=== PATIENT | female | born 1965 | race Caucasian/White ===

== ENCOUNTER → 2018-11-30 07:45 | Outpatient (CLI) | payer OTHER, SELFPAY ==
--- NOTE | 2018-11-30 08:03 | MRI_ITS ---
STUDY: MRI LUMBAR SPINE WITHOUT CONTRAST REASON FOR EXAM: Female, 53 years old. Low back pain. TECHNIQUE: Standardized fat and water weighted pulse sequences were obtained in the sagittal and axial planes. COMPARISON: None FINDINGS: T12-L1: Normal endplates. Normal disc height, hydration and morphology. Normal bilateral facet joints. Normal central canal and bilateral lateral recesses. Normal bilateral intervertebral neural foramina. Normal lumbar lordosis. There is no substantial scoliosis. Normal conus medullaris that terminates at the L1. L1-2: Normal endplates. Normal disc height, hydration and morphology. Normal bilateral facet joints. Normal central canal and bilateral lateral recesses. Normal bilateral intervertebral neural foramina. L2-3: Mild bilateral facet hypertrophy and ligament flavum hypertrophy. Mild broad disc protrusion produces mild spinal stenosis with mild bilateral lateral recess stenosis but no neural foraminal stenosis. L3-4: Mild bilateral facet hypertrophy and ligament flavum hypertrophy. Mild broad disc protrusion produces mild spinal stenosis with mild bilateral lateral recess stenosis and mild bilateral neural foraminal stenosis. L4-5: Mild bilateral facet hypertrophy and ligament flavum hypertrophy. Moderate broad disc protrusion produces moderate spinal stenosis with moderate bilateral lateral recess stenosis with abutment of the L4 nerve roots bilaterally but no neural foraminal stenosis. L5-S1: Normal endplates. Normal disc height, hydration and morphology. Normal bilateral facet joints. Normal central canal and bilateral lateral recesses. Normal bilateral intervertebral neural foramina. Normal visualized sacral ala. Normal visualized paraspinous soft tissue structures. MRI/Spine Lumbar (Routine) IMPRESSION: Multilevel degenerative changes, as described above. Electronically Signed: Gautam Maynard MD at 10:42 EDT Tel , Service support ,
== END ==
PROVIDERS: Family Provider Internal Medicine; PCP Internal Medicine; Referring Provider Anesthesiology Pain Medicine; Visit Provider Anesthesiology Pain Medicine
DX: M54.9 Dorsalgia, unspecified (principal); M79.606 Pain in leg, unspecified
CPT/HCPCS: 72148

== ENCOUNTER → 2019-02-08 08:46 | Outpatient (CLI) | payer OTHER, SELFPAY ==
--- NOTE | 2019-02-08 14:41 | NEURO ---
NCS and/or EMG Patient Report Ordering Doctor: Emmett Franz DATE OF SERVICE: 02/08/19 Cristin Mathis is a 53-year-old female presents for electrodiagnostic testing of the lower limbs. She reports constant low back pain and muscle tightness over the past several years. Electrodiagnostic findings: Peroneal motor nerve demonstrates normal distal latency, amplitude and conduction velocity bilaterally. Normal tibial motor response bilaterally. sensory responses are within normal limits. normal tibial and peroneal F wave bilaterally. H reflexes are borderline prolonged. On needle EMG 1+ fibrillations noted in the left vastus medialis, left anterior tibialis and left lumbar paraspinals. Motor action potentials of normal amplitude and duration. Next Electrodiagnostic impression: This is an abnormal study. 1. Electrodiagnostic findings demonstrate acute left-sided L4 radiculopathy. 2. There is no electrodiagnostic evidence for peripheral neuropathy. If there are any further questions, please not hesitate to contact me.
== END ==
PROVIDERS: Family Provider Internal Medicine; PCP Internal Medicine; Referring Provider Neurological Surgery; Visit Provider Neurological Surgery
DX: M51.36 Other intervertebral disc degeneration, lumbar region (principal)
CPT/HCPCS: 95886; 95912

== ENCOUNTER → 2019-02-20 12:36 | Outpatient (CLI) | payer OTHER, SELFPAY ==
[2019-02-20 13:57] LABS: Amphetamine Urine VISTA NEGATIVE (<1000 ng/mL); Barbiturate Urine VISTA NEGATIVE (< 200 ng/mL); Benzodiazepine Urine VISTA NEGATIVE (< 200 ng/mL); Cocaine Urine VISTA NEGATIVE (< 300 ng/mL); Ecstacy Urine VISTA NEGATIVE (< 500 ng/mL); Methadone Urine VISTA NEGATIVE (< 300 ng/mL); PCP Urine VISTA NEGATIVE (< 25 ng/mL); THC Urine VISTA NEGATIVE (< 50 ng/mL); Vista UDS pH Range 5
== END ==
PROVIDERS: Family Provider Internal Medicine; PCP Internal Medicine; Referring Provider Anesthesiology Pain Medicine; Visit Provider Anesthesiology Pain Medicine
DX: F11.20 Opioid dependence, uncomplicated (principal)
CPT/HCPCS: 80307

== ENCOUNTER 2019-08-16 19:07 | Emergency (ER) | payer OTHER, SELFPAY ==
[2019-08-16 19:07] VITALS: BP 148/71; PULSE 83; RESP 16; TEMP 36.5; O2SAT 98; BMI 31.6
--- NOTE | 2019-08-16 19:32 | ED.RN ---
PT CAME UP TO DESK AND STATES SHE LIVES CLOSER TO [facility] AND WANTS TO GO THERE. PT UPDATED THAT SHE IS SECOND UP FOR A BED. PT STATES SHE DOESNT WANT TO WAIT ANY LONGER.
== END 2019-08-16 19:32 | disposition left against medical advice (07) ==
LOC: ED 19:46
PROVIDERS: Emergency Provider Emergency Medicine; PCP Internal Medicine
DX: Z53.29 Procedure and treatment not carried out because of patient's decision for other reasons (principal)

== ENCOUNTER 2020-06-19 12:30 | Outpatient (RCR) | payer OTHER, SELFPAY ==
--- NOTE | 2020-05-29 13:10 | HP.PTEVAL_ITS ---
Patient's Visit Information KASI BALDERAS is a 55 year old F referred to Physical Therapy by Dr. Yuni Escudero MD with a diagnosis of BACK AND HIP PAIN. Date of Evaluation: 05/29/20 Physical Therapist: Migue Sánchez, PT, Cert MDT, OCS - Visit Plan Frequency: 2x /Week Duration: 4 Weeks Plan: NO PELVIC TILT. PT INTERVENTIONS AQUATIC THERAPY CAROL EX'S,DLS,POSTURAL EX'S ,NEUTRAL POSTION - Subjective This 55 y/o female presents to physical therapy with back and leg pain. Patient has had back and hip pain right side many years. Patient seen DR Angel for epidural injections which didnt work before . Patient taking vicodin . Aggraveting factors bending ,lifting , walking and standing. Alleviating factors rest. Patient has seen massage . Pateint seen PT in past ,and chiropractor. Denies parathesia. Coughing/sneezing +. Patient bowel/bladder -. Patient has TENS unit. Patient pain affects sleeping. Patient pain affects QOL and function/ADLS. Patient pain affects ADL'S.Pateint had MRI many years showed protrusion. SOCAIL:Enrico Raphael. VOCATION: single - Pain Bilateral Back Pain Intensity (Out of 10): 7 Pain Intensity Range: 10 Right Hip Pain Intensity (Out of 10): 10 Pain Intensity Range: 10 - Objective POSTURE: mild foward posture. GAIT: reciprocal pattern but antalgic gait right side. NEURO: denies parathesia/tingling,reflexes L3-4,L4-5,L5-S1 1/3. PALPATION: right I T band,L-S region. SYMMTRIES: align - Special Tests L/S Slump test left side: Positive L/S Slump test right side: Positive L/S Left Straight Leg Raise: Positive L/S Right Straight Leg Raise: Positive Lumbar Standing: Flexion - Mechanical Response: No effect Lumbar Standing: Flexion - Symptoms During Testing: Increases Lumbar Standing: Flexion - Symptoms After Testing: Worse Comments:: quad Lumbar Standing: Extension - Mechanical Response: No effect Lumbar Standing: Extension - Symptoms During Testing: Decreases Lumbar Standing: Extension - Symptoms After Testing: Better Comments:: quads Lumbar Standing: Right Side Glides - Mechanical Response: No effect Lumbar Standing: Right Side [place] - Symptoms During Testing: No effect Lumbar Standing: Right Side [place] - Symptoms After Testing: No effect Lumbar Standing: Left Side [place] - Mechanical Response: No effect Lumbar Standing: Left Side [place] - Symptoms During Testing: No effect Lumbar Standing: Left Side [place] - Symptoms After Testing: No effect - Goals Goal 1:: Patient to be I with HEP Goal Time Frame: 4-6 Weeks Goal 2:: Patient to improve posture /body mechanics Goal Time Frame: 4-6 Weeks Goal 3:: Patient to decrease lumbar pain and radicular symptosm by 50% or > to improve function Goal Time Frame: 4-6 Weeks Goal 4:: Patient to improve lumbar ROM for function of recovery Goal Time Frame: 4-6 Weeks Goal 5:: Patient to increase back owestry score by 5 points or > to impove function. Goal Time Frame: 4-6 Weeks - Rehabilitation Potential Physical Therapy Diagnosis: Patient has possible derrangement with symptoms below knee with h/o 2 protruding disc worse with flexion ,pelvic tilts are painfull,sitting and driving ,extension centrailizes symmtoms symmtrical . Paln to get MRI Rehabilitation Potential: Good - Anticipated Interventions Patient/Client Instruction: Educate patient on: Condition, Plan of Care For the Purpose of:: To decrease pain, To increase ROM, To improve muscle performance and motor function, To improve ability to perform ADL's, To increase tolerance to activity/condition/position, To improve ability of physical actions for home/community/work/leisure, To improve health of tissue, To decrease soft tissue restriction, To increase flexibility/ROM, To prevent re-injury Therapeutic Exercise to Include: Strength training, Body mechanics, Postural training, Flexibilty training, In an aquatic setting, Dynamic Lumbar Stabilization, Carol Exercises For the Purpose of:: To decrease pain, To increase ROM, To improve muscle performance and motor function, To increase tolerance to activity/condition/position, To improve ability of physical actions for home/community/work/leisure, To improve health of tissue, To decrease soft tissue restriction, To increase flexibility/ROM, To reduce risk of recurrence, To improve ability to perform tasks related to life management TENS: Yes IF ES: Yes Cryotherapy (ice pack, ice massage): Yes Thermo therapy (hot pack): Yes Ultrasound (thermal/non thermal): Yes For the Purpose of:: To decrease pain, To increase ROM, To improve muscle performance and motor function, To increase tolerance to activity/condition/position, To improve health of tissue, To decrease soft tissue restriction, To increase flexibility/ROM, To reduce risk of recurrence, To improve ability to perform tasks related to life management Thank you for the opportunity to evaluate your patient. For Medicare and Medicare HMO plans, please review the plan of care and approve it. It will need to be FAXED BACK to us at [phone] for Medicare purposes. For Medicare only, by signing this I certify the plan of care. Please let me know if there are questions or concerns regarding this plan of care. Physician Signature: Date:
== END 2020-06-19 19:00 | disposition home or self-care (01) ==
LOC: PT 12:30
PROVIDERS: PCP Internal Medicine; Referring Provider Anesthesiology Pain Medicine; Visit Provider Anesthesiology Pain Medicine
DX: M25.551 Pain in right hip (principal); M54.9 Dorsalgia, unspecified
CPT/HCPCS: 97110; 97113; 97162

== ENCOUNTER → 2020-06-19 14:56 | Outpatient (CLI) | payer OTHER, SELFPAY ==
[2020-06-19 15:57] LABS: Amphetamine Urine VISTA NEGATIVE (<1000 ng/mL); Barbiturate Urine VISTA NEGATIVE (< 200 ng/mL); Benzodiazepine Urine VISTA NEGATIVE (< 200 ng/mL); Cocaine Urine VISTA NEGATIVE (< 300 ng/mL); Ecstacy Urine VISTA NEGATIVE (< 500 ng/mL); Methadone Urine VISTA NEGATIVE (< 300 ng/mL); PCP Urine VISTA NEGATIVE (< 25 ng/mL); THC Urine VISTA NEGATIVE (< 50 ng/mL); Vista UDS pH Range 6
== END ==
PROVIDERS: PCP Internal Medicine; Referring Provider Anesthesiology Pain Medicine; Visit Provider Anesthesiology Pain Medicine
DX: F11.20 Opioid dependence, uncomplicated (principal)
CPT/HCPCS: 80307

== ENCOUNTER → 2020-10-09 12:21 | Outpatient (CLI) | payer OTHER, BC, SELFPAY ==
[2020-09-03 11:08] VITALS: BMI 32.4
[2020-10-09 15:19] LABS: Absolute Lymphocyte Count 1.88 X10^3/uL (0.83-4.51); Absolute Neutrophil Count 3.6 X10^3/uL (2.0-7.7); Basophil# 0.06 X10^3/uL; Eosinophil# 0.12 X10^3/uL; Eosinophils% 1.9 % (0-5); Hematocrit 40.2 % (37-47); Hemoglobin 12.8 g/dL (12.0-15.0); Lymphocyte # 1.88 X10^3/ul (0.83-4.51); Lymphocyte % 30.2 % (19-41); Mean Corp Hgb Conc 31.8 g/dL (32-36); Mean Corpuscular Hgb 28.6 pg (27.0-32.0); Mean Corpuscular Volume 89.9 fL (81-99); Mean Platelet Vol. 9.7 fl (6.2-12.0); Monocyte# 0.52 X10^3/uL; Monocyte% 8.4 % (0-10); NRBC Flagged by Analyzer 0 % (0-5); Neutrophil # 3.63 X10^3/uL (2.7-7.7); Neutrophil % 58.3 % (47-70); Platelet Count 376 K/mm3 (150-450); RBC Distribution Width CV 13.1 % (11.6-14.6); RBC Distribution Width SD 43.1 fl (35.1-43.9); Red Blood Count 4.47 M/mm3 (4.2-5.4); White Blood Count 6.2 K/mm3 (4.4-11.0)
[2020-10-09 15:42] LABS: AST(SGOT) 18 U/L (15-37); Alanine Aminotransfer ALT/SGPT 33 U/L (13-56); Albumin, Serum 3.8 g/dL (3.2-5.0); Alkaline Phosphatase 58 U/L (45-117); Anion Gap 4 (5-15); BUN 16 mg/dL (7-18); BUN/Creat Ratio 24.4 RATIO (10-20); CRP < 2.90 mg/L (0.0-3.0); Calcium,Total 9.1 mg/dL (8.5-10.1); Chloride 107 mmol/L (98-107); Creatinine, Serum 0.66 mg/dL (0.55-1.02); EST Glomerular Filtration Rate 99 mL/min (>60); Est Glom Filt Rate - Afr Amer 120 mL/min (>60); Glucose 84 mg/dL (74-106); Potassium 3.7 mmol/L (3.5-5.1); Protein, Total 7.8 g/dL (6.4-8.2); Rheumatoid Factor < 10.0 IU/mL (<15); Sodium Level 140 mmol/L (136-145)
[2020-10-09 15:48] LABS: Erythrocyte Sedimentation Rate 15 mm/hr (0-30)
[2020-10-10 08:25] LABS: Hepatitis B Surface Antibody Non-Reactive; Hepatitis B Surface Antigen Non-Reactive (Nonreactive); Hepatitis C Antibody Non-Reactive (Nonreactive)
[2020-10-13 07:48] LABS: ANTINUCLEAR ANTIBODIES DIRECT Negative (Negative)
[2020-10-14 11:52] LABS: CCP IgG Antibodies 4 units (0-19)
== END ==
PROVIDERS: PCP Internal Medicine; Referring Provider Internal Medicine Rheumatology; Visit Provider Internal Medicine Rheumatology
DX: M06.4 Inflammatory polyarthropathy (principal); M19.041 Primary osteoarthritis, right hand; G56.01 Carpal tunnel syndrome, right upper limb; M47.897 Other spondylosis, lumbosacral region; M47.892 Other spondylosis, cervical region; I10 Essential (primary) hypertension; E78.5 Hyperlipidemia, unspecified; F41.9 Anxiety disorder, unspecified; K44.9 Diaphragmatic hernia without obstruction or gangrene; K21.9 Gastro-esophageal reflux disease without esophagitis; J44.9 Chronic obstructive pulmonary disease, unspecified; I25.2 Old myocardial infarction
CPT/HCPCS: 36415; 80053; 85025; 85652; 86038; 86140; 86200; 86431; 86706; 86803; 87340

== ENCOUNTER 2020-11-11 08:32 | Day surgery (SDC) | payer OTHER, BC, SELFPAY ==
[2020-10-15 10:34] VITALS: BMI 32.4
--- NOTE | 2020-11-11 09:21 | HP.PCM_ITS ---
History and Physical Date of Admission: 11/11/20 Date of Service:? 10/15/20 MR#: [id number] Acct: [id number] Name:KASI MISHRA Rep #: [id number] : 1965 ? ? Provider: Dr. Marcel Mccann, DO Age/Sex:? 55/F ? ? [place] [facility] [place] Status: Signed Intake Vital Signs ? 10/15/2109:34 BMI 32.4 Intake Visit Reasons:?RIGHT WRIST Allergies etodolac Adverse Reaction (Severe, Verified 10/15/20 10:50) shaking. Medications hydrocodone-acetaminophen 1 tab PO TID 10/22/15 [History Confirmed 10/15/20] albuterol sulfate 90 mcg/actuation aerosol inhaler gm INHALATION 09/03/20 [History Confirmed 10/15/20] amlodipine 5 mg tablet ea PO 09/03/20 [History Confirmed 10/15/20] budesonide-formoterol HFA 160 mcg-4.5 mcg/actuation aerosol inhaler gm INHALATION 09/03/20 [History Confirmed 10/15/20] cyclobenzaprine 10 mg tablet ea PO 09/03/20 [History Confirmed 10/15/20] fluoxetine 20 mg capsule ea PO 09/03/20 [History Confirmed 10/15/20] fluticasone propionate 50 mcg/actuation nasal spray,suspension gm INTRANASAL 09/03/20 [History Confirmed 10/15/20] levocetirizine 5 mg tablet ea PO 09/03/20 [History Confirmed 10/15/20] methocarbamol 750 mg tablet 750 mg PO Q8H 09/03/20 [History Confirmed 10/15/20] pantoprazole 20 mg tablet,delayed release ea PO 09/03/20 [History Confirmed 10/15/20] prednisone 10 mg tablet 15 mg PO? tab 10/15/20 [History Confirmed 10/15/20] PFSH Medical History?(Updated 10/15/20 @ 10:58 by Janet Camacho) History of heart attack HTN (hypertension) Hx Gallbladder Removal Hx of cancer of uterus hx of exploritory surgery Surgical History?(Updated 09/03/20 @ 11:19 by Janet Camacho) History of rectal surgery Hx of bladder repair surgery Hx of cardiac cath Hx of hernia repair Hx of hysterectomy Family History?(Updated 09/03/20 @ 11:20 by Janet Camacho) Mother Cancer Heart disease Uterine cancerFather Heart diseaseBrother Heart disease Social History?(Updated 09/03/20 @ 12:[address] Marcel Mccann, ) Smoking Status:? Current every day smoker tobacco type: cigarettes Tobacco: How many years used:? 40 alcohol intake:? never HPI RIGHT WRIST Details: Parts of this documentation were recorded by a scribe, this documentation accurately reflects the service provided and the decisions made by me, Dr. Marcel Mccann DO 10/15/20 1030. KASI BALDERAS is a 55 year old F NEW patient here today for? [facility] right wrist pain. She has had an EMG study which showed that she has moderate right carpal tunnel syndrome. She started a new position in 07/2020 and She states that ar ound 09/01/2020 she started having some right hand pain and occasional numbness/tingling and pain radiating into the right arm. She states that she has pain over the radial side of the wrist and she has burning of the right hand into her all of her fingers. She states that occasionally when she reaches to grab something then she feels electrical pains. She is currently 4hours regular job and then 4hrs light duty for limited use of the right hand. Denies any injection or surgery. She has been using a night brace for about 1 month which she feels is somewhat helpful. She is is also currently on prednisone for a hip issue and she states this has caused the right arm pain to subside. Pain is worse over the radial side of the arm and does occasional radites into her arm. She states that her elbow pain has resolved with her job modification and does not have any complains of pain with the elbow at this time. Is seeing Dr. George for possible inflammatory condition. ROS Const Reports weakness ENT Denies neck pain Musc Reports muscle weakness, Denies neck pain, Reports numbness, Reports radiating pain into limb, Denies stiffness and Reports tingling Skin/Breast Denies lesions, Denies pruritus and Denies rash Neuro Yes numbness, Yes tingling and Yes weakness Ortho Exam General General: Yes no acute distress Neurologic: Yes alert and Yes oriented x3 Psychologic: Yes reasonable and appropriate Right Wrist/Hand Right Wrist: Yes Durken's Test, Tinel's, Phalen's, CMC Grind and tender to palpate 1st dorsal compartment; No tender to palpate carpometacarpal joint WRIST: unable to reproduce tinnels d/t constant tingling during exam common extensor tendon intact TTP over DRUJ no pain with resisted wrist extension Right Elbow Test: No TTP Lateral Epicondyle Supplemental Info 10/15/2020 x-ray right elbow: There is a small ossific density adjacent to the medial epicondyle no acute findings 10/15/2020 x-ray right wrist: Mild scaphotrapezial arthrosis as well as mild degenerative change of the DRUJ Coding Level of Care Code Off vis,new,level 3 Diagnoses Other synovitis and tenosynovitis, right hand? M65.841 Lateral epicondylitis, right elbow? M77.11 Assessment and Plan Assessment and Plan (1) Other synovitis and tenosynovitis, right hand: ?Status:?Acute (2) Lateral epicondylitis, right elbow: ?Status:?Acute ?Plan - Dr. Marcel Mccann, DO: Obtained X-rays of patient's right wrist and right elbow. Personally reviewed x- rays. There is no obvious fracture, dislocation, or lucency noted. Patient educated that she has a positive EMG and symptoms of carpal tunnel syndrome. Treatment options are do nothing or steroid injection or right carpal tunnel release. We will request right carpal tunnel syndrome be added to the claim. Once this is approved then we will request the right carpal tunnel release. She will be off work for 4 weeks post op then return with limited use for 2 weeks then back to full duty. 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 This is related to a over use issue and repetitive use issue. We can request this be added to the claim. Treatment options for this are do nothing or immobilization or steroid injection or hand surgeon for CMC joint arthroplasty. If this diagnosis is approved then we will request CMC joint arthritis. We will keep her on light duty at this time with limited use of the right hand. Follow up as needed or sooner if pain, swelling, numbness or associated symptoms, or concerns develop.? All questions answered. Patient in agreement of plan. 10/15/20 1309 <Electronically signed by Marcel Mccann DO> Date Marcel Mccann DO Cosigner Signature: Date (if applicable) ? CC: ? ~I have re-examined the patient. There are no clinical changes since date of exam
[2020-11-11 09:42] VITALS: BP 119/62; PULSE 65; RESP 16; TEMP 36.7; O2SAT 96; BMI 32.0
[2020-11-11] MEDS: Lactated Ringers 1,000 ML 100 ML IV (10:01)
[2020-11-11] MEDS: Cefazolin 2 GM in 0.9% Normal Saline 100 ML IV (10:12)
--- NOTE | 2020-11-11 10:13 | PCM.DC ---
Discharge Instructions Activity Additional Activity Instructions:: Ice and elevate operative extremity next 72 hours. Keep dressing on clean and dry for 48 hours then may remove and allow warm soapy water to rinse over incision but do not submerge until sutures are out. Then apply bandaid over incision and change daily. encourage finger range of motion. Not lift more than 1/2 pound. Follow Up Care Please Follow Up With: Marcel Mccann DO When: 2 weeks Test Results: Test results from this visit will be discussed in further detail at your follow-up appointment, if applicable. Discharge Plan Admission Attending Provider: Marcel Mccann Primary Care Provider: Hallie Gonzalez Discharge Orders/Prescriptions Prescriptions: New hydrocodone-acetaminophen 5-325 mg tablet 1 - 2 tab PO Q4H PRN (Reason: pain) 5 Days Qty: 20 RF: 0 No Action pantoprazole 20 mg tablet,delayed release (DR/EC) 20 mg PO BID RF: 0 amlodipine 5 mg tablet 5 mg PO BID RF: 0 levocetirizine 5 mg tablet 5 mg PO DAILY PRN (Reason: allergies) RF: 0 fluticasone propionate 50 mcg/actuation spray,suspension 1 spray INTRANASAL DAILY RF: 0 fluoxetine 20 mg capsule 20 mg PO QHS RF: 0 budesonide-formoterol 160-4.5 mcg/actuation HFA aerosol inhaler 2 puff INHALATION BID RF: 0 cyclobenzaprine 10 mg tablet 10 mg PO PRN PRN (Reason: muscle spasms) RF: 0 methocarbamol 750 mg tablet 750 mg PO QHS RF: 0 prednisone 10 mg tablet 10 mg PO DAILY RF: 0 hydrocodone-acetaminophen 1 EACH tablet 1 tab PO DAILY RF: 0 amoxicillin 500 mg Tablet 500 mg PO TID RF: 0 albuterol sulfate 90 mcg/actuation Hfa Aerosol Inhaler 1 inh INHALATION Q6H PRN (Reason: sob) RF: 0 [place]-3 Capsule 1,000 mg PO BID RF: 0 cholecalciferol (vitamin D3) [Vitamin D3] 125 mcg (5,000 unit) Tablet 500 mcg PO DAILY RF: 0 Referrals / Follow Up: Hallie Gonzalez MD [Primary Care Provider] -
--- NOTE | 2020-11-11 10:17 | PCM.OPRPT ---
Report of Operation Description of Surgical Findings:: Preoperative diagnosis; right carpal tunnel syndrome Postoperative diagnosis; same Procedure: Right open carpal tunnel release Anesthesia: Local with MAC Tourniquet time; 10 minutes 250 mm Hg Complications: None Indication for procedure; This is a 47-pfyw-epc-female with long-standing symptoms consistent with carpal tunnel syndrome the patient did have electrodiagnostic evidence of this and has failed conservative treatment. Risks benefits and alternatives were reviewed including risks of bleeding infection nerve artery tissue damage need for further surgery and continued pain and symptoms, hypersensitivity to scar and Pillar pain. Procedure; The patient was met in the preoperative holding area the operative extremity was identified by both patient and physician and was marked the patient was met by anesthesia and brought back to the operating room and transferred to the operating table in the supine position. Aanesthesia was started. A well-padded tourniquet was placed on the operative upper extremity. The patient was prepped and draped in the usual sterile fashion. A timeout was called to ensure the proper patient procedure and extremity were being contemplated. 0.5 percent Marcaine with epinephrine was injected into the incisional area. An Esmarch was used to exsanguinate the extremity. The tourniquet was inflated to 250 mmHg. A midline incision was made with a 15 blade scalpel between the thenar and hypothenar eminence. This was carried down through the skin and subcutaneous tissue. Noreen retractors were then used, a deep blade scalpel was used to make a deep incision in the palmar aponeurosis. The noreen retractors were then placed deep to this and the transverse carpal ligament was identified a perforation was made with a scalpel and a Littler scissors were used to complete the release of the transverse carpal ligament distally under direct visualization with the tips facing ulnarly until the perivascular fat was reached. Then turning our attention proximally using a tension slide technique the proximal extent of the transverse carpal ligament was released . There was noted to be hourglass configuration to the median nerve and hypertrophy of the transverse carpal ligament without other findings. The wound was thoroughly irrigated and was closed with 4-0 nylon vertical mattress stitches. Dressing was applied in the form of xeroform 4 x 4, web roll and an junito wrap. Tourniquet was let down there is no intraoperative complications patient tolerated the procedure well and was transferred to the PACU. All counts were correct.
[2020-11-11 10:53] VITALS: BP 108/95; BP 119/62; PULSE 64; RESP 18; TEMP 36.3; O2SAT 97
[2020-11-11 10:59] VITALS: BP 105/60; BP 119/62; PULSE 59; RESP 20; O2SAT 95
[2020-11-11 11:05] VITALS: BP 100/42; BP 119/62; PULSE 58; RESP 18; O2SAT 96
[2020-11-11 11:08] VITALS: BP 103/60; BP 119/62; PULSE 58; RESP 18; TEMP 36.4; O2SAT 95
[2020-11-11 11:35] VITALS: BP 119/62
== END 2020-11-11 11:49 ==
LOC: SDC 08:33 → AC 08:33
PROVIDERS: PCP Internal Medicine; Referring Provider Orthopaedic Surgery; Visit Provider Orthopaedic Surgery
PROC: (CPT 64721; principal; 2020-11-11 10:00)
DX: G56.01 Carpal tunnel syndrome, right upper limb (principal); I25.2 Old myocardial infarction; I25.10 Atherosclerotic heart disease of native coronary artery without angina pectoris; F17.210 Nicotine dependence, cigarettes, uncomplicated; M65.841 Other synovitis and tenosynovitis, right hand; M77.11 Lateral epicondylitis, right elbow; Z85.42 Personal history of malignant neoplasm of other parts of uterus; Z79.899 Other long term (current) drug therapy; Z79.52 Long term (current) use of systemic steroids; J44.9 Chronic obstructive pulmonary disease, unspecified; F41.9 Anxiety disorder, unspecified; I10 Essential (primary) hypertension; K21.9 Gastro-esophageal reflux disease without esophagitis; G25.81 Restless legs syndrome; G35 Multiple sclerosis
CPT/HCPCS: 01810; 64721; 87426; C9803; J7120

== ENCOUNTER → 2021-03-05 11:10 | Outpatient (CLI) | payer BC, SELFPAY ==
--- NOTE | 2021-03-05 11:22 | MRI_ITS ---
STUDY: MRI LUMBAR SPINE WITHOUT CONTRAST REASON FOR EXAM: Female, 55 years old. BACK PAIN LEG PAIN TECHNIQUE: Standardized fat and water weighted pulse sequences were obtained in the sagittal and axial planes. COMPARISON: 11/30/2018 FINDINGS: T12-L1: Normal endplates. Normal disc height, hydration and morphology. Normal bilateral facet joints. Normal central canal and bilateral lateral recesses. Minimal posterior disc bulge. Normal bilateral intervertebral neural foramina. Normal lumbar lordosis. There is no substantial scoliosis. Normal conus medullaris that terminates at the L1. L1-2: Normal endplates. Normal disc height, hydration and morphology. There is bilateral ligamentum flavum thickening. Normal central canal and bilateral lateral recesses. Normal bilateral intervertebral neural foramina. L2-3: Loss of intervertebral disc height. There is endplate spondylosis of the vertebral body. Normal central canal and intervertebral neuroforamina. There is bilateral facet arthropathy. There is bilateral ligamentum flavum thickening. Posterior disc bulge osteophyte complex. Mild spinal stenosis. Narrowing of the lateral recess. L2 vertebral body hemangioma. L3-4: Loss of intervertebral disc height. There is endplate spondylosis of the vertebral body. Normal central canal and intervertebral neuroforamina. There is bilateral facet arthropathy. There is bilateral ligamentum flavum thickening. Posterior disc bulge osteophyte complex. Mild spinal stenosis. Narrowing of the lateral recess. L4-5: Loss of intervertebral disc height. There is endplate spondylosis of the vertebral body. Normal central canal and intervertebral neuroforamina. There is bilateral facet arthropathy. There is bilateral ligamentum flavum thickening. Posterior disc bulge osteophyte complex. Moderate spinal stenosis. Narrowing of the lateral recess. Stable disc desiccation. L5-S1: Loss of intervertebral disc height. There is endplate spondylosis of the vertebral body. Normal central canal and intervertebral neuroforamina. There is bilateral facet arthropathy. There is bilateral ligamentum flavum thickening. Normal visualized sacral ala. Normal visualized paraspinous soft tissue structures. MRI/Spine Lumbar (Routine) IMPRESSION: Multilevel degenerative changes, as described above. Overall, the findings are stable since the prior study. Electronically Signed: Murtaza Charles MD at 13:43 EDT , Service support ,
== END ==
PROVIDERS: PCP Internal Medicine; Visit Provider Anesthesiology Pain Medicine
DX: M54.16 Radiculopathy, lumbar region (principal); M54.17 Radiculopathy, lumbosacral region; M51.36 Other intervertebral disc degeneration, lumbar region; M51.37 Other intervertebral disc degeneration, lumbosacral region
CPT/HCPCS: 72148

== ENCOUNTER 2021-07-29 16:22 | Outpatient (CLI) | payer OTHER, SELFPAY ==
[2021-07-29 16:44] LABS: Mucous, Urine 0 SEEN /hpf (<or=2+)
[2021-07-29 16:59] LABS: Color, Urine Yellow (Yellow); Glucose, Dipstick Normal (Normal); Ketone-Dipstick Negative (Negative); Leukocyte Esterase-Dipstick 500 /ul (Negative); Nitrite-Dipstick Negative (Negative); Occult Blood-Urine 50 /ul (Negative); Protein-Dipstick 30 mg/dl (Negative); Specific Gravity, Urine 1.025 (1.002-1.030); Urine Bilirubin Dipstick Negative (Negative); Urine Clarity Cloudy (Clear); Urine Urobilinogen Normal (Normal)
[2021-07-29 17:25] LABS: Bacteria 2+ /hpf (None Seen); Squamous Epithelial Cells - UA 5-10 SEEN /hpf (5-10); White Blood Cells >100 SEEN /hpf (0-5)
[2021-07-29 17:26] LABS: Red Blood Cells-Urine 0-5 SEEN /hpf (0-5)
== END 2021-07-29 23:59 | disposition home or self-care (01) ==
LOC: LABSPEC 16:23
PROVIDERS: PCP Internal Medicine; Visit Provider Physician Assistant
DX: R30.0 Dysuria (principal)
CPT/HCPCS: 81001; 87077; 87086; 87088; 87186

== ENCOUNTER → 2022-05-12 | Outpatient (CLI) | payer OTHER, SELFPAY ==
[2022-05-12 18:36] LABS: Amphetamine Urine VISTA NEGATIVE (<1000 ng/mL); Barbiturate Urine VISTA NEGATIVE (< 200 ng/mL); Benzodiazepine Urine VISTA NEGATIVE (< 200 ng/mL); Cocaine Urine VISTA NEGATIVE (< 300 ng/mL); Ecstacy Urine VISTA NEGATIVE (< 500 ng/mL); Methadone Urine VISTA NEGATIVE (< 300 ng/mL); PCP Urine VISTA NEGATIVE (< 25 ng/mL); THC Urine VISTA NEGATIVE (< 50 ng/mL); Vista UDS pH Range 4
== END | disposition home or self-care (01) ==
LOC: LAB 17:41
PROVIDERS: PCP Internal Medicine; Visit Provider Anesthesiology Pain Medicine
DX: F11.20 Opioid dependence, uncomplicated (principal); M51.36 Other intervertebral disc degeneration, lumbar region
CPT/HCPCS: 80307

== ENCOUNTER → 2022-07-30 | Outpatient (CLI) | payer OTHER, SELFPAY ==
--- NOTE | 2022-07-30 14:38 | MRI_ITS ---
EXAM: MR RIGHT LOWER EXTREMITY WITHOUT INTRAVENOUS CONTRAST, KNEE CLINICAL INDICATION: right knee intermittent locking TECHNIQUE: Multiplanar and multisequence MR images of the right knee without intravenous contrast. This report was created using [employer] technology. COMPARISON: None. FINDINGS: BONES/JOINTS: Marrow signal is normal. No fracture, bone contusion or osteonecrosis. No intra-articular body. EXTENSOR MECHANISM: Unremarkable. MEDIAL MENISCUS: Unremarkable. LATERAL MENISCUS: Unremarkable. MEDIAL CAPSULE/SUPPORTING STRUCTURES: Unremarkable. Intact. LATERAL CAPSULE/SUPPORTING STRUCTURES: Unremarkable. Intact. ANTERIOR CRUCIATE LIGAMENT: Intact. POSTERIOR CRUCIATE LIGAMENT: Intact. MUSCLES: Unremarkable. CARTILAGE: Unremarkable. FLUID: No joint effusion. OTHER SOFT TISSUES: 2.5 x 1.4 x 2.7 cm cystic lesion in the posteromedial soft tissues at the level of the distal femoral shaft, posterior to the vastus medialis and anteromedial to the sartorius. MRI/Lower Ext Joint Only (Routine) IMPRESSION: Posteromedial cystic lesion, possible ganglion cyst. Consider 6-12 month follow-up with contrast to exclude interval change. Otherwise negative study. Electronically Signed: Diane Stevens MD at 20:22 EST Reading Location ID and State: [id number] / Tel , Service support ,
== END | disposition home or self-care (01) ==
LOC: MRI 14:38
PROVIDERS: PCP Internal Medicine; Visit Provider Physician Assistant
DX: S80.01XA Contusion of right knee, initial encounter (principal)
CPT/HCPCS: 73721

== ENCOUNTER 2022-09-08 10:37 | Emergency (ER) | payer OTHER, SELFPAY ==
[2022-09-08 10:38] VITALS: BP 113/92; PULSE 82; RESP 14; TEMP 36.1; O2SAT 98; BMI 32.9
--- NOTE | 2022-09-08 10:47 | ED.RN ---
PT REQUESTING GURPREET PAREDESE HER NURSE MULTIPLE TIMES, EXPLAINED SHE IS A FLOAT AND NOT IN THE ER TODAY, SHE IS NOT REGULAR ER STAFF.
--- NOTE | 2022-09-08 11:21 | EDS_ITS ---
HPI History of Present Illness Chief Complaint: Other, Pain/Inj Narrative Narrative: 57-year-old female here for diffuse pain all over. States he is got diffuse joint muscle pain stiffness. Further states this has been going on for over a month. Essentially reports pain positive view of systems. Denies any recent falls or other trauma. Denies any chetan chest pain now, shortness of breath. States she been having increased urination, fatigue and is tired all the time. States one of her friends had similar issues and presented to the emergency department found to have something very severe PFSH [facility] Medical History Abrasion of both knees Alcohol use Ambulates with cane Anemia Anxiety Arthritis Back pain Cancer Cardiology follow-up encounter Chest pain Contusion, knee COPD (chronic obstructive pulmonary disease) Difficulty swallowing Gastric reflux History of pain when walking History of renal disease History of stress test History of ulceration HTN (hypertension) Hx Gallbladder Removal hx of exploritory surgery Injury of head and neck Multiple sclerosis MVP (mitral valve prolapse) Restless legs Smoker Strain of left wrist URI (upper respiratory infection) Wears glasses Wears partial dentures Home Medications amlodipine 5 mg tablet 5 mg PO BID 09/03/20 [History Last Taken 11/11/20 08:00] budesonide-formoterol HFA 160 mcg-4.5 mcg/actuation aerosol inhaler 2 puff inhalation BID 09/03/20 [History Last Taken Unknown] cyclobenzaprine 10 mg tablet 10 mg PO PRN PRN muscle spasms 09/03/20 [History Last Taken Unknown] fluoxetine 20 mg capsule 20 mg PO QHS 09/03/20 [History Last Taken 11/11/20 08:00] fluticasone propionate 50 mcg/actuation nasal spray,suspension 1 spray intranasal DAILY 09/03/20 [History Last Taken Unknown] levocetirizine 5 mg tablet 5 mg PO DAILY PRN allergies 09/03/20 [History Last Taken Unknown] methocarbamol 750 mg tablet 750 mg PO QHS 09/03/20 [History Last Taken Unknown] pantoprazole 20 mg tablet,delayed release 20 mg PO BID 09/03/20 [History Last Taken 11/11/20 08:00] albuterol sulfate 90 mcg/actuation aerosol inhaler 1 inh inhalation Q6H PRN sob 11/06/20 [History Last Taken Unknown] cholecalciferol (vitamin D3) 125 mcg (5,000 unit) tablet (Vitamin D3) 500 mcg PO DAILY 11/06/20 [History Last Taken 11/11/20 08:00] omega-3 fatty acids 1,000 mg PO BID 11/06/20 [History Last Taken Unknown] prednisone 10 mg tablet 10 mg PO DAILY #18 tabs 07/05/22 [Rx Last Taken Unknown] prednisone 10 mg tablet 10 mg PO DIRECTED #18 tabs 07/19/22 [Rx Last Taken Un known] Allergy/AdvReac Type Severity Reaction Status Date / Time etodolac AdvReac Severe shaking. Verified 09/08/22 10:38 Family History Mother Cancer Heart disease Uterine cancer Father Heart disease Brother Heart disease Surgical History History of carpal tunnel surgery of left wrist History of esophagogastroduodenoscopy (EGD) History of rectal surgery Hx of bladder repair surgery Hx of cardiac cath Hx of hernia repair Hx of hysterectomy Hx of nasal septoplasty Hx of repair of right rotator cuff Hx of tonsillectomy Social History Smoking Status: Current every day smoker tobacco type: cigarettes Tobacco: How many years used: 40 alcohol intake: never ROS ROS ED ROS Narrative Constitutional: Denies fever HEENT: Denies sore throat Neck: Denies neck pain Cardiovascular: Denies chest pain, syncope Respiratory: Denies shortness of breath GI: Denies nausea vomiting or abdominal pain : Denies changes in urinary habits Musculoskeletal: Denies muscle or joint pain Neurologic: Denies numbness weakness or loss of sensation Skin denies rash EXAM Physical Exam Narrative Exam Narrative: Nursing triage notes reviewed, Vital signs reviewed Constitutional: please see mdm HENT: MMM Eyes: Pupils equal round and reactive to light, Extraocular muscles intact Neck: No stridor, no JVD, full neck ROM Lungs: Clear to auscultation, No wheezing or rales. No increased work of breathing, no conversational dyspnea, no accessory muscle use, no nasal flaring. No respiratory distress noted Heart: Regular rate and rhythm, No murmurs, No rubs and No gallops, 2+ distal pulses (radial, femoral, posterior tibial) in all extremities Abdomen: Soft, there is no tenderness, rigidity, rebound or guarding, no obvious peritoneal signs, no palpable pulsatile abdominal masses, no auscultated abdominal bruit : No CVAT Extremities: No edema Neuro: No focal neurological deficits, cranial nerves II through XII intact, 5/5 strength in all extremities. Intact sensation to light touch in all extremities, 2+ reflexes bilateral patella dens. Normal gait. No ataxia. Skin: No rash or lesions noted Const Vital Signs: 09/08/22 10:38 09/08/22 11:03 09/08/22 12:10 Temperature 97 F L Temperature Source Temporal Pulse Rate 82 Respiratory Rate 14 Respiratory Pattern Normal Blood Pressure 113/92 H Blood Pressure Mean 99 Pulse Ox 98 Oxygen Delivery Method Room Air Room Air MDM MDM MDM Narrative Medical decision making narrative: Chief Complaint: Acute on chronic pain External records reviewed: I considered the following differential diagnosis: Factors affecting care: Social determinants of health: History obtained from others: Shared decision making: I will have a discussion with the patient and or visitors regarding risk/benefits of further testing or admission. They will be made aware of of the risk/benefits inherent in this decision they will be given the opportunity to voice understanding. Consults: Lab Data Attestation: I reviewed the patient's lab results. Lab results narrative: CBC with no leukocytosis, no anemia, no thrombocytopenia UA with evidence of mild inflammation but no nitrite to suggest bacterial urine infection CMP without evidence of acute kidney injury, significant electrolyte abnormality, anion gap, no evidence hepatobiliary pathology. Troponin is negative, no evidence of myocardial ischemia Labs: Laboratory Results - last 24 hr 09/08/22 09/08/22 09/08/22 12:50 12:58 12:58 WBC 8.3 RBC 4.19 L Hgb 12.2 Hct 38.9 MCV 92.8 MCH 29.1 MCHC 31.4 L RDW Std Deviation 45.4 H RDW Coeff of Johana 13.3 Plt Count 310 MPV 8.9 Immature Gran % (Auto) 0.100 Neut % (Auto) 60.6 Lymph % (Auto) 28.6 [place] % (Auto) 8.4 Eos % (Auto) 1.7 Baso % (Auto) 0.6 Absolute Neuts (auto) 5.1 Absolute Lymphs (auto) 2.38 Nucleated RBC % 0 Sodium 140 Potassium 4.8 Chloride 111 H Carbon Dioxide 25.0 Anion Gap 4 L BUN 16 Creatinine 0.93 Estim Creat Clear Calc 56.94 Est GFR (MDRD) Af Amer 79 Est GFR (MDRD) Non-Af 66 BUN/Creatinine Ratio 17.2 Glucose 103 Calcium 8.8 Total Bilirubin 0.40 Direct Bilirubin 0.06 AST 25 ALT 34 Alkaline Phosphatase 44 L Troponin I High Sens 6 Total Protein 7.1 Albumin 3.5 Globulin 3.6 Urine Color Yellow Urine Clarity Clear Urine pH 6.0 Ur Specific [place] 1.020 Urine Protein Negative Urine Glucose (UA) Normal Urine Ketones Negative Urine Occult Blood 10 H Urine Nitrite Negative Urine Bilirubin Negative Urine Urobilinogen Normal Ur Leukocyte Esterase 25 H Urine RBC 0-5 SEEN Urine WBC 0-5 SEEN Ur Squamous Epith Cells 0 SEEN Urine Bacteria 0 SEEN Urine Mucus 0 SEEN Radiography Diagnostic Testing: Clinical Impression(s) from Imaging Studies Chest X-Ray 09/08/22 13:03 IMPRESSION: No acute abnormality is seen. Electronically Signed: Liam Thomas MD at 13:39 EDT , I have personally reviewed the patient's chest x-ray. Chest x-ray is unremarkable for pulmonary edema, pneumothorax, pneumonia or focal cardiopulmonary abnormality. EKG Initial EKG: Attestation: I personally reviewed and interpreted this EKG as follows: Comments: EKG shows normal sinus rhythm, left ax deviation, normal intervals, no STEMI Discharge Plan Triage Chief Complaint: Other, Pain/Inj ED Provider: Homer Madden Dx/Rx/DC Orders Clinical Impression: Fatigue Instructions: ED Chronic Pain Prescriptions: No Action pantoprazole 20 mg tablet,delayed release (DR/EC) 20 mg PO BID Label Comments: TAKE 1 TABLET BY MOUTH TWICE DAILY. TAKE ON EMPTY STOMACH, 1/2 HR BEFORE MEAL. amlodipine 5 mg tablet 5 mg PO BID Label Comments: TAKE 1 TABLET BY MOUTH TWICE A DAY levocetirizine 5 mg tablet 5 mg PO DAILY PRN (Reason: allergies) Label Comments: TAKE 1 TABLET BY MOUTH EVERY DAY fluticasone propionate 50 mcg/actuation spray,suspension 1 spray INTRANASAL DAILY Label Comments: SPRAY 1 SPRAY INTO EACH NOSTRIL EVERY DAY fluoxetine 20 mg capsule 20 mg PO QHS Label Comments: TAKE 1 CAPSULE BY MOUTH EVERY DAY budesonide-formoterol 160-4.5 mcg/actuation HFA aerosol inhaler 2 puff INHALATION BID Label Comments: INHALE 2 PUFFS INSTRUCTED TWICE DAILY. *TRANS TO [facility] TAM POLEN ET 5 28 20 cyclobenzaprine 10 mg tablet 10 mg PO PRN PRN (Reason: muscle spasms) Label Comments: TAKE 1 ORAL EVERY NIGNT FOR 28 DAYS methocarbamol 750 mg tablet 750 mg PO QHS prednisone 10 mg tablet 10 mg PO DAILY Qty: 18 0RF Rx Instructions: 3 tablets daily x3 days, then 2 tablets daily x3 days, then 1 tablet daily x3 days prednisone 10 mg tablet 10 mg PO DIRECTED Qty: 18 0RF Rx Instructions: 3 tablets daily x3 days, then 2 tablets daily x3 days, then 1 tablet daily x3 days albuterol sulfate 90 mcg/actuation Hfa Aerosol Inhaler 1 inh INHALATION Q6H PRN (Reason: sob) [place]te-3 Capsule 1,000 mg PO BID cholecalciferol (vitamin D3) [Vitamin D3] 125 mcg (5,000 unit) Tablet 500 mcg PO DAILY Stand Alone Forms: ED Work / School Excuse Primary Care Provider: Hallie Gonzalez Referrals: Hallie Gonzalez MD [Primary Care Provider] - Activity Restrictions/Additional Instructions: Please take Tylenol, ibuprofen as needed for further pain control. Please follow with your pain management physician for further outpatient pain control. Please return if your symptoms change or worsen in any way. Disposition Disposition: Home, Self Care
--- NOTE | 2022-09-08 12:09 | EDS_ITS ---
HPI History of Present Illness Chief Complaint: Other, Pain/Inj Narrative Narrative: 57-year-old female here with diffuse pain all over, diffuse weakness and fatigue. She states is been going on for the greater part of a month. Notes she fell at that time had a full work-up including imaging of all her involved painful areas with no evidence of fractures or dislocations. Patient states her pain has been constant severe PFSH PFS Medical History Abrasion of both knees Alcohol use Ambulates with cane Anemia Anxiety Arthritis Back pain Cancer Cardiology follow-up encounter Chest pain Contusion, knee COPD (chronic obstructive pulmonary disease) Difficulty swallowing Gastric reflux History of pain when walking History of renal disease History of stress test History of ulceration HTN (hypertension) Hx Gallbladder Removal hx of exploritory surgery Injury of head and neck Multiple sclerosis MVP (mitral valve prolapse) Restless legs Smoker Strain of left wrist URI (upper respiratory infection) Wears glasses Wears partial dentures Home Medications amlodipine 5 mg tablet 5 mg PO BID 09/03/20 [History Last Taken 11/11/20 08:00] budesonide-formoterol HFA 160 mcg-4.5 mcg/actuation aerosol inhaler 2 puff inhalation BID 09/03/20 [History Last Taken Unknown] cyclobenzaprine 10 mg tablet 10 mg PO PRN PRN muscle spasms 09/03/20 [History Last Taken Unknown] fluoxetine 20 mg capsule 20 mg PO QHS 09/03/20 [History Last Taken 11/11/20 08:00] fluticasone propionate 50 mcg/actuation nasal spray,suspension 1 spray intranasal DAILY 09/03/20 [History Last Taken Unknown] levocetirizine 5 mg tablet 5 mg PO DAILY PRN allergies 09/03/20 [History Last Taken Unknown] methocarbamol 750 mg tablet 750 mg PO QHS 09/03/20 [History Last Taken Unknown] pantoprazole 20 mg tablet,delayed release 20 mg PO BID 09/03/20 [History Last Taken 11/11/20 08:00] albuterol sulfate 90 mcg/actuation aerosol inhaler 1 inh inhalation Q6H PRN sob 11/06/20 [History Last Taken Unknown] cholecalciferol (vitamin D3) 125 mcg (5,000 unit) tablet (Vitamin D3) 500 mcg PO DAILY 11/06/20 [History Last Taken 11/11/20 08:00] omega-3 fatty acids 1,000 mg PO BID 11/06/20 [History Last Taken Unknown] prednisone 10 mg tablet 10 mg PO DAILY #18 tabs 07/05/22 [Rx Last Taken Unknown] prednisone 10 mg tablet 10 mg PO DIRECTED #18 tabs 07/19/22 [Rx Last Taken Unknown] Allergy/AdvReac Type Severity Reaction Status Date / Time etodolac AdvReac Severe shaking. Verified 09/08/22 10:38 Family History Mother Cancer Heart disease Uterine cancer Father Heart disease Brother Heart disease Surgical History History of carpal tunnel surgery of left wrist History of esophagogastroduodenoscopy (EGD) History of rectal surgery Hx of bladder repair surgery Hx of cardiac cath Hx of hernia repair Hx of hysterectomy Hx of nasal septoplasty Hx of repair of right rotator cuff Hx of tonsillectomy Social History Smoking Status: Current every day smoker tobacco type: cigarettes Tobacco: How many years used: 40 alcohol intake: never ROS ROS ED ROS Narrative Constitutional: Endorses fever, fatigue HEENT: Denies sore throat Neck: Endorses chronic neck pain Cardiovascular: Endorses occasional chest tightness, denies chest pain currently Respiratory: Denies shortness of breath GI: Denies nausea vomiting or abdominal pain, endorses nausea : Denies changes in urinary habits, endorses increased frequency Musculoskeletal: Endorses diffuse muscle pain Neurologic: Denies numbness weakness or loss of sensation Skin denies rash EXAM Physical Exam Narrative Exam Narrative: Nursing triage notes reviewed, Vital signs reviewed Constitutional: please see mdm HENT: MMM Eyes: Pupils equal round and reactive to light, Extraocular muscles intact Neck: No stridor, no JVD, full neck ROM Lungs: Clear to auscultation, No wheezing or rales. No increased work of breathing, no conversational dyspnea, no accessory muscle use, no nasal flaring. No respiratory distress noted Heart: Regular rate and rhythm, No murmurs, No rubs and No gallops, 2+ distal pulses (radial, femoral, posterior tibial) in all extremities Abdomen: Soft, there is no tenderness, rigidity, rebound or guarding, no obvious peritoneal signs, no palpable pulsatile abdominal masses, no auscultated abdominal bruit : No CVAT Extremities: No edema Neuro: No focal neurological deficits, cranial nerves II through XII intact, 5/5 strength in all extremities. Intact sensation to light touch in all extremities, 2+ reflexes bilateral patella dens. Normal gait. No ataxia. Skin: No rash or lesions noted Const Vital Signs: 09/08/22 10:38 09/08/22 11:03 09/08/22 12:10 Temperature 97 F L Temperature Source Temporal Pulse Rate 82 Respiratory Rate 14 Respiratory Pattern Normal Blood Pressure 113/92 H Blood Pressure Mean 99 Pulse Ox 98 Oxygen Delivery Method Room Air Room Air MDM MDM MDM Narrative Medical decision making narrative: Chief Complaint: Diffuse pain External records reviewed: X-ray left hand from June 2022 was negative for acute osseous abnormality I considered the following differential diagnosis: ACS, arrhythmia, anemia, Juli abnormalities, hypocalcemia, UTI, pneumonia EKG, troponin were negative for ACS, there is no arrhythmia, is no significant anemia, there is no significant electrolyte abnormalities, there is no UTI evidence of pneumonia. Patient's fatigue is unexplained but likely not related to life limiting etiology given unremarkable exam, stable vital signs and reassuring lab work-up. The patient is appropriate discharge home with close outpatient follow-up. Factors affecting care: Fibromyalgia, chronic pain Social determinants of health: None History obtained from others: Patient's daughter Shared decision making: I will have a discussion with the patient and or visitors regarding risk/benefits of further testing or admission. They will be made aware of of the risk/benefits inherent in this decision they will be given the opportunity to voice understanding. Consults: Lab Data Attestation: I reviewed the patient's lab results. Lab results narrative: CBC with no leukocytosis, no anemia, no thrombocytopenia CMP without significant electrolyte abnormalities, there is no anion gap, no acute kidney injury, there is no evidence of hepatobiliary obstruction Troponin is negative, no evidence of myocardial ischemia Urinalysis no evidence of UTI Labs: Laboratory Results - last 24 hr 09/08/22 09/08/22 09/08/22 12:50 12:58 12:58 WBC 8.3 RBC 4.19 L Hgb 12.2 Hct 38.9 MCV 92.8 MCH 29.1 MCHC 31.4 L RDW Std Deviation 45.4 H RDW Coeff of Johana 13.3 Plt Count 310 MPV 8.9 Immature Gran % (Auto) 0.100 Neut % (Auto) 60.6 Lymph % (Auto) 28.6 [place] % (Auto) 8.4 Eos % (Auto) 1.7 Baso % (Auto) 0.6 Absolute Neuts (auto) 5.1 Absolute Lymphs (auto) 2.38 Nucleated RBC % 0 Sodium 140 Potassium 4.8 Chloride 111 H Carbon Dioxide 25.0 Anion Gap 4 L BUN 16 Creatinine 0.93 Estim Creat Clear Calc 56.94 Est GFR (MDRD) Af Amer 79 Est GFR (MDRD) Non-Af 66 BUN/Creatinine Ratio 17.2 Glucose 103 Calcium 8.8 Total Bilirubin 0.40 Direct Bilirubin 0.06 AST 25 ALT 34 Alkaline Phosphatase 44 L Troponin I High Sens 6 Total Protein 7.1 Albumin 3.5 Globulin 3.6 Urine Color Yellow Urine Clarity Clear Urine pH 6.0 Ur Specific [place] 1.020 Urine Protein Negative Urine Glucose (UA) Normal Urine Ketones Negative Urine Occult Blood 10 H Urine Nitrite Negative Urine Bilirubin Negative Urine Urobilinogen Normal Ur Leukocyte Esterase 25 H Urine RBC 0-5 SEEN Urine WBC 0-5 SEEN Ur Squamous Epith Cells 0 SEEN Urine Bacteria 0 SEEN Urine Mucus 0 SEEN Radiography Diagnostic Testing: Clinical Impression(s) from Imaging Studies Chest X-Ray 09/08/22 13:03 IMPRESSION: No acute abnormality is seen. Electronically Signed: Liam Thomas MD at 13:39 EDT , Discharge Plan Triage Chief Complaint: Other, Pain/Inj ED Provider: Homer Madden Dx/Rx/DC Orders Clinical Impression: Fatigue Instructions: ED Chronic Pain Prescriptions: No Action pantoprazole 20 mg tablet,delayed release (DR/EC) 20 mg PO BID Label Comments: TAKE 1 TABLET BY MOUTH TWICE DAILY. TAKE ON EMPTY STOMACH, 1/2 HR BEFORE MEAL. amlodipine 5 mg tablet 5 mg PO BID Label Comments: TAKE 1 TABLET BY MOUTH TWICE A DAY levocetirizine 5 mg tablet 5 mg PO DAILY PRN (Reason: allergies) Label Comments: TAKE 1 TABLET BY MOUTH EVERY DAY fluticasone propionate 50 mcg/actuation spray,suspension 1 spray INTRANASAL DAILY Label Comments: SPRAY 1 SPRAY INTO EACH NOSTRIL EVERY DAY fluoxetine 20 mg capsule 20 mg PO QHS Label Comments: TAKE 1 CAPSULE BY MOUTH EVERY DAY budesonide-formoterol 160-4.5 mcg/actuation HFA aerosol inhaler 2 puff INHALATION BID Label Comments: INHALE 2 PUFFS INSTRUCTED TWICE DAILY. *TRANS TO [facility] TAM [facility]ERR ET 5 20 cyclobenzaprine 10 mg tablet 10 mg PO PRN PRN (Reason: muscle spasms) Label Comments: TAKE 1 ORAL EVERY NIGNT FOR 28 DAYS methocarbamol 750 mg tablet 750 mg PO QHS prednisone 10 mg tablet 10 mg PO DAILY Qty: 18 0RF Rx Instructions: 3 tablets daily x3 days, then 2 tablets daily x3 days, then 1 tablet daily x3 days prednisone 10 mg tablet 10 mg PO DIRECTED Qty: 18 0RF Rx Instructions: 3 tablets daily x3 days, then 2 tablets daily x3 days, then 1 tablet daily x3 days albuterol sulfate 90 mcg/actuation Hfa Aerosol Inhaler 1 inh INHALATION Q6H PRN (Reason: sob) [place]-3 Capsule 1,000 mg PO BID cholecalciferol (vitamin D3) [Vitamin D3] 125 mcg (5,000 unit) Tablet 500 mcg PO DAILY Stand Alone Forms: ED Work / School Excuse Primary Care Provider: Hallie Gonzalez Referrals: Hallie Gonzalez MD [Primary Care Provider] - Activity Restrictions/Additional Instructions: Please take Tylenol, ibuprofen as needed for further pain control. Please follow with your pain management physician for further outpatient pain control. Please return if your symptoms change or worsen in any way. Disposition Disposition: Home, Self Care
[2022-09-08] MEDS: Ondansetron 4 MG/2 ML Vial IV (12:57)
[2022-09-08] MEDS: 0.9% Normal Saline 1,000 ML 1000 ML IV (12:57)
[2022-09-08 13:00] VITALS: RESP 18
[2022-09-08 13:00] LABS: Bacteria 0 SEEN /hpf (None Seen); Mucous, Urine 0 SEEN /hpf (<or=2+); Squamous Epithelial Cells - UA 0 SEEN /hpf (5-10)
[2022-09-08 13:02] LABS: Color, Urine Yellow (Yellow); Glucose, Dipstick Normal (Normal); Ketone-Dipstick Negative (Negative); Leukocyte Esterase-Dipstick 25 /ul (Negative); Nitrite-Dipstick Negative (Negative); Occult Blood-Urine 10 /ul (Negative); Protein-Dipstick Negative (Negative); Urine Bilirubin Dipstick Negative (Negative); Urine Clarity Clear (Clear); Urine Urobilinogen Normal (Normal)
--- NOTE | 2022-09-08 13:03 | RAD_ITS ---
STUDY: X-RAY CHEST REASON FOR EXAM: Female, 57 years old. Chest pain TECHNIQUE: Single AP portable view of the chest. COMPARISON: Comparison is made with prior study of October 22, 2015. FINDINGS: The lungs are clear and expanded. There is no demonstrated pleural abnormality. Normal size heart. Normal mediastinum and afshan. Normal visualized pulmonary arteries. Normal visualized aortic arch and descending thoracic aorta. There are diffuse degenerative changes of the visualized thoracic spine. Normal visualized ribs, clavicles, and shoulders. There is no demonstrated abnormality of the visualized soft tissue structures of the upper abdomen. RAD/Chest 1 View (Portable) IMPRESSION: No acute abnormality is seen. Electronically Signed: Liam Thomas MD at 13:39 EDT ,
[2022-09-08 13:18] LABS: Absolute Lymphocyte Count 2.38 X10^3/uL (0.83-4.51); Absolute Neutrophil Count 5.1 X10^3/uL (2.0-7.7); Basophil# 0.05 X10^3/uL; Basophil% 0.6 % (0-1); Eosinophil# 0.14 X10^3/uL; Eosinophils% 1.7 % (0-5); Hematocrit 38.9 % (37-47); Hemoglobin 12.2 g/dL (12.0-15.0); Lymphocyte # 2.38 X10^3/ul (0.83-4.51); Lymphocyte % 28.6 % (19-41); Mean Corp Hgb Conc 31.4 g/dL (32-36); Mean Corpuscular Hgb 29.1 pg (27.0-32.0); Mean Corpuscular Volume 92.8 fL (81-99); Mean Platelet Vol. 8.9 fl (6.2-12.0); Monocyte% 8.4 % (0-10); NRBC Flagged by Analyzer 0 % (0-5); Neutrophil # 5.05 X10^3/uL (2.7-7.7); Neutrophil % 60.6 % (47-70); Platelet Count 310 K/mm3 (150-450); RBC Distribution Width CV 13.3 % (11.6-14.6); RBC Distribution Width SD 45.4 fl (35.1-43.9); Red Blood Count 4.19 M/mm3 (4.2-5.4); White Blood Count 8.3 K/mm3 (4.4-11.0)
[2022-09-08 13:29] LABS: AST(SGOT) 25 U/L (15-37); Alanine Aminotransfer ALT/SGPT 34 U/L (13-56); Albumin, Serum 3.5 g/dL (3.2-5.0); Alkaline Phosphatase 44 U/L (45-117); Anion Gap 4 (5-15); BUN 16 mg/dL (7-18); BUN/Creat Ratio 17.2 RATIO (10-20); Bilirubin, Direct 0.06 mg/dL (0.00-0.30); Calcium,Total 8.8 mg/dL (8.5-10.1); Chloride 111 mmol/L (98-107); Creatinine, Serum 0.93 mg/dL (0.55-1.02); EST Glomerular Filtration Rate 66 mL/min (>60); Est Glom Filt Rate - Afr Amer 79 mL/min (>60); Estimated Creatinine Clearance 56.94 ml/min; Globulin 3.6 g/dL (2.2-4.2); Glucose 103 mg/dL (74-106); Potassium 4.8 mmol/L (3.5-5.1); Protein, Total 7.1 g/dL (6.4-8.2); Sodium Level 140 mmol/L (136-145); Troponin-I HS 6 pg/mL (3.0-54.0)
[2022-09-08 13:46] LABS: Red Blood Cells-Urine 0-5 SEEN /hpf (0-5); White Blood Cells 0-5 SEEN /hpf (0-5)
--- NOTE | 2022-09-08 14:02 | EX.ED.GENINJ ---
HPI History of Present Illness Chief Complaint: Other, Pain/Inj PFSH PFS Medical History Abrasion of both knees Alcohol use Ambulates with cane Anemia Anxiety Arthritis Back pain Cancer Cardiology follow-up encounter Chest pain Contusion, knee COPD (chronic obstructive pulmonary disease) Difficulty swallowing Gastric reflux History of pain when walking History of renal disease History of stress test History of ulceration HTN (hypertension) Hx Gallbladder Removal hx of exploritory surgery Injury of head and neck Multiple sclerosis MVP (mitral valve prolapse) Restless legs Smoker Strain of left wrist URI (upper respiratory infection) Wears glasses Wears partial dentures Home Medications amlodipine 5 mg tablet 5 mg PO BID 09/03/20 [History Last Taken 11/11/20 08:00] budesonide-formoterol HFA 160 mcg-4.5 mcg/actuation aerosol inhaler 2 puff inhalation BID 09/03/20 [History Last Taken Unknown] cyclobenzaprine 10 mg tablet 10 mg PO PRN PRN muscle spasms 09/03/20 [History Last Taken Unknown] fluoxetine 20 mg capsule 20 mg PO QHS 09/03/20 [History Last Taken 11/11/20 08:00] fluticasone propionate 50 mcg/actuation nasal spray,suspension 1 spray intranasal DAILY 09/03/20 [History Last Taken Unknown] levocetirizine 5 mg tablet 5 mg PO DAILY PRN allergies 09/03/20 [History Last Taken Unknown] methocarbamol 750 mg tablet 750 mg PO QHS 09/03/20 [History Last Taken Unknown] pantoprazole 20 mg tablet,delayed release 20 mg PO BID 09/03/20 [History Last Taken 11/11/20 08:00] albuterol sulfate 90 mcg/actuation aerosol inhaler 1 inh inhalation Q6H PRN sob 11/06/20 [History Last Taken Unknown] cholecalciferol (vitamin D3) 125 mcg (5,000 unit) tablet (Vitamin D3) 500 mcg PO DAILY 11/06/20 [History Last Taken 11/11/20 08:00] omega-3 fatty acids 1,000 mg PO BID 11/06/20 [History Last Taken Unknown] prednisone 10 mg tablet 10 mg PO DAILY #18 tabs 07/05/22 [Rx Last Taken Unknown] prednisone 10 mg tablet 10 mg PO DIRECTED #18 tabs 07/19/22 [Rx Last Taken Unknown] Allergy/AdvReac Type Severity Reaction Status Date / Time etodolac AdvReac Severe shaking. Verified 09/08/22 10:38 Family History Mother Cancer Heart disease Uterine cancer Father Heart disease Brother Heart disease Surgical History History of carpal tunnel surgery of left wrist History of esophagogastroduodenoscopy (EGD) History of rectal surgery Hx of bladder repair surgery Hx of cardiac cath Hx of hernia repair Hx of hysterectomy Hx of nasal septoplasty Hx of repair of right rotator cuff Hx of tonsillectomy Social History Smoking Status: Current every day smoker tobacco type: cigarettes Tobacco: How many years used: 40 alcohol intake: never EXAM Physical Exam Const Vital Signs: 09/08/22 10:38 09/08/22 11:03 09/08/22 12:10 Temperature 97 F L Temperature Source Temporal Pulse Rate 82 Respiratory Rate 14 Respiratory Pattern Normal Blood Pressure 113/92 H Blood Pressure Mean 99 Pulse Ox 98 Oxygen Delivery Method Room Air Room Air MDM MDM Lab Data Labs: Laboratory Results - last 24 hr 09/08/22 09/08/22 09/08/22 12:50 12:58 12:58 WBC 8.3 RBC 4.19 L Hgb 12.2 Hct 38.9 MCV 92.8 MCH 29.1 MCHC 31.4 L RDW Std Deviation 45.4 H RDW Coeff of Johana 13.3 Plt Count 310 MPV 8.9 Immature Gran % (Auto) 0.100 Neut % (Auto) 60.6 Lymph % (Auto) 28.6 [place] % (Auto) 8.4 Eos % (Auto) 1.7 Baso % (Auto) 0.6 Absolute Neuts (auto) 5.1 Absolute Lymphs (auto) 2.38 Nucleated RBC % 0 Sodium 140 Potassium 4.8 Chloride 111 H Carbon Dioxide 25.0 Anion Gap 4 L BUN 16 Creatinine 0.93 Estim Creat Clear Calc 56.94 Est GFR (MDRD) Af Amer 79 Est GFR (MDRD) Non-Af 66 BUN/Creatinine Ratio 17.2 Glucose 103 Calcium 8.8 Total Bilirubin 0.40 Direct Bilirubin 0.06 AST 25 ALT 34 Alkaline Phosphatase 44 L Troponin I High Sens 6 Total Protein 7.1 Albumin 3.5 Globulin 3.6 Urine Color Yellow Urine Clarity Clear Urine pH 6.0 Ur Specific [place] 1.020 Urine Protein Negative Urine Glucose (UA) Normal Urine Ketones Negative Urine Occult Blood 10 H Urine Nitrite Negative Urine Bilirubin Negative Urine Urobilinogen Normal Ur Leukocyte Esterase 25 H Urine RBC 0-5 SEEN Urine WBC 0-5 SEEN Ur Squamous Epith Cells 0 SEEN Urine Bacteria 0 SEEN Urine Mucus 0 SEEN Radiography Diagnostic Testing: Clinical Impression(s) from Imaging Studies Chest X-Ray 09/08/22 13:03 IMPRESSION: No acute abnormality is seen. Electronically Signed: Liam Thomas MD at 13:39 EDT , Discharge Plan Triage Chief Complaint: Other, Pain/Inj ED Provider: Homer Madden Dx/Rx/DC Orders Clinical Impression: Fatigue Instructions: ED Chronic Pain Prescriptions: No Action pantoprazole 20 mg tablet,delayed release (DR/EC) 20 mg PO BID Label Comments: TAKE 1 TABLET BY MOUTH TWICE DAILY. TAKE ON EMPTY STOMACH, 1/2 HR BEFORE MEAL. amlodipine 5 mg tablet 5 mg PO BID Label Comments: TAKE 1 TABLET BY MOUTH TWICE A DAY levocetirizine 5 mg tablet 5 mg PO DAILY PRN (Reason: allergies) Label Comments: TAKE 1 TABLET BY MOUTH EVERY DAY fluticasone propionate 50 mcg/actuation spray,suspension 1 spray INTRANASAL DAILY Label Comments: SPRAY 1 SPRAY INTO EACH NOSTRIL EVERY DAY fluoxetine 20 mg capsule 20 mg PO QHS Label Comments: TAKE 1 CAPSULE BY MOUTH EVERY DAY budesonide-formoterol 160-4.5 mcg/actuation HFA aerosol inhaler 2 puff INHALATION BID Label Comments: INHALE 2 PUFFS INSTRUCTED TWICE DAILY. *TRANS TO DELLA KERR ET 5 28 20 cyclobenzaprine 10 mg tablet 10 mg PO PRN PRN (Reason: muscle spasms) Label Comments: TAKE 1 ORAL EVERY NIGNT FOR 28 DAYS methocarbamol 750 mg tablet 750 mg PO QHS prednisone 10 mg tablet 10 mg PO DAILY Qty: 18 0RF Rx Instructions: 3 tablets daily x3 days, then 2 tablets daily x3 days, then 1 tablet daily x3 days prednisone 10 mg tablet 10 mg PO DIRECTED Qty: 18 0RF Rx Instructions: 3 tablets daily x3 days, then 2 tablets daily x3 days, then 1 tablet daily x3 days albuterol sulfate 90 mcg/actuation Hfa Aerosol Inhaler 1 inh INHALATION Q6H PRN (Reason: sob) [place]-3 Capsule 1,000 mg PO BID cholecalciferol (vitamin D3) [Vitamin D3] 125 mcg (5,000 unit) Tablet 500 mcg PO DAILY Stand Alone Forms: ED Work / School Excuse Primary Care Provider: Hallie Gonzalez Referrals: Hallie Gonzalez MD [Primary Care Provider] - Activity Restrictions/Additional Instructions: Please take Tylenol, ibuprofen as needed for further pain control. Please follow with your pain management physician for further outpatient pain control. Please return if your symptoms change or worsen in any way. Disposition Disposition: Home, Self Care
== END 2022-09-08 14:29 | disposition home or self-care (01) ==
PROVIDERS: Emergency Provider Emergency Medicine; PCP Internal Medicine; Visit Provider Emergency Medicine
DX: R53.83 Other fatigue (principal); G35 Multiple sclerosis; F17.210 Nicotine dependence, cigarettes, uncomplicated
CPT/HCPCS: 71045; 80048; 80076; 81001; 84484; 85025; 93005; 96361; 96374; 99283; J7030; A4216; J2405

== ENCOUNTER 2023-04-18 19:28 | Emergency (ER) | payer BC, SELFPAY ==
[2023-04-18 19:30] VITALS: BP 130/82; PULSE 88; RESP 18; TEMP 36.2; O2SAT 99; BMI 30.9
--- NOTE | 2023-04-18 19:51 | EKG12_ITS ---
Test Reason : BLADDER Blood Pressure : / mmHG Vent. Rate : 080 BPM Atrial Rate : 080 BPM P-R Int : 146 ms QRS Dur : 084 ms QT Int : 382 ms P-R-T Axes : 051 -08 043 degrees QTc Int : 440 ms Normal sinus rhythm Normal ECG Confirmed by LEONORA MARTINEZ MD ([id number]), film and video editor JETHRO RICHARD ([id number]) on 04/20/2023 6:51:18 AM Referred By: [email or web address] Confirmed By:LEONORA MARTINEZ MD
--- NOTE | 2023-04-18 19:53 | EDS_ITS ---
HPI History of Present Illness Chief Complaint: Complaint Informant: patient Narrative Narrative: Patient presents with multiple complaints. She reports not feeling well for the past 2 or 3 weeks. She states she had an area of redness over her thigh that she was concerned with a blood clot. She saw 2 different doctors did not feel that it was a clot, but she called a vein specialist who returned her call today and sent her to the emergency room. She states those symptoms seem to be improving. She also developed urinary frequency and back pain over the weekend. She now has burning with urination. She did start taking Azo yesterday. She also reports intermittent chest pain recently that she thinks is stress related. She denies measured fever but has had chills and sweats. [facility] Medical History Abrasion of both knees Alcohol use Ambulates with cane Anemia Anxiety Arthritis Back pain Cancer Cardiology follow-up encounter Chest pain Contusion, knee COPD (chronic obstructive pulmonary disease) Difficulty swallowing Gastric reflux History of pain when walking History of renal disease History of stress test History of ulceration HTN (hypertension) Hx Gallbladder Removal hx of exploritory surgery Injury of head and neck Multiple sclerosis MVP (mitral valve prolapse) Restless legs Smoker Strain of left wrist URI (upper respiratory infection) Wears glasses Wears partial dentures Home Medications amlodipine 5 mg tablet 5 mg PO DAILY 09/03/20 [History Last Taken 11/11/20 08:00] budesonide-formoterol HFA 160 mcg-4.5 mcg/actuation aerosol inhaler 2 puff inhalation BID 09/03/20 [History Last Taken Unknown] cyclobenzaprine 10 mg tablet 10 mg PO PRN PRN muscle spasms 09/03/20 [History Last Taken Unknown] fluoxetine 20 mg capsule 20 mg PO QHS 09/03/20 [History Last Taken 11/11/20 08:00] fluticasone propionate 50 mcg/actuation nasal spray,suspension 1 spray intranasal DAILY 09/03/20 [History Last Taken Unknown] levocetirizine 5 mg tablet 5 mg PO DAILY PRN allergies 09/03/20 [History Last Taken Unknown] pantoprazole 20 mg tablet,delayed release 20 mg PO BID 09/03/20 [History Last Taken 11/11/20 08:00] albuterol sulfate 90 mcg/actuation aerosol inhaler 1 inh inhalation Q6H PRN sob 11/06/20 [History Last Taken Unknown] ciprofloxacin HCl 500 mg tablet (Cipro) 500 mg PO BID #7 tabs 04/18/23 [Rx Last Taken Unknown] hydrocodone-acetaminophen 5-325mg 5mg-325mg 1 tab PO TID PRN pain 04/18/23 [History Last Taken Unknown] Allergy/AdvReac Type Severity Reaction Status Date / Time etodolac AdvReac Severe shaking. Verified 09/08/22 10:38 Family History Mother Cancer Heart disease Uterine cancer Father Heart disease Brother Heart disease Surgical History History of carpal tunnel surgery of left wrist History of esophagogastroduodenoscopy (EGD) History of rectal surgery Hx of bladder repair surgery Hx of cardiac cath Hx of hernia repair Hx of hysterectomy Hx of nasal septoplasty Hx of repair of right rotator cuff Hx of tonsillectomy Social History Smoking Status: Current every day smoker tobacco type: cigarettes Tobacco: How many years used: 40 alcohol intake: never ROS ROS ED Constitutional Constitutional ED: Reports chills and sweats; Denies fever(s) Eyes Eyes: Denies change in vision or discharge from eye(s) ENT ENT ED: Denies discharge from eye(s), rhinorrhea or sore throat Cardiovascular Cardiovascular: Reports chest pain; Denies palpitations Respiratory/Chest Respiratory/Chest: Denies cough or dyspnea Gastrointestinal Gastrointestinal: Reports abdominal pain, nausea and vomiting; Denies diarrhea Genitourinary Genitourinary ED: Reports dysuria and urinary frequency Musculoskeletal Musculoskeletal: Reports back pain and extremity pain Integumentary Denies Abrasions or rash Neurologic Neurologic: Denies headache(s) or weakness Psychiatric Psychiatric: Denies anxiety or depression Allergic/Immunologic Allergic/Immunologic ED: Denies lip swelling or urticaria EXAM Physical Exam Const Vital Signs: 04/18/23 19:30 Temperature 97.2 F L Temperature Source Temporal Pulse Rate 88 Respiratory Rate 18 Blood Pressure 130/82 H Blood Pressure Mean 98 Pulse Ox 99 Oxygen Delivery Method Room Air Positive well nourished and well developed General Appearance ED: well developed HEENT Reports moist mucous membranes Eyes EOMs intact bilaterally Chest Wall inspection of chest normal and palpation of chest normal Resp normal respiratory effort and clear to auscultation bilaterally Cardio regular rate and regular rhythm GI non-tender Palpation: soft Back/Spine no CVA tenderness Extremity normal to inspection Neuro oriented x3 and no sensory deficits noted Motor Exam: strength 5/5 throughout Psych Mood & Affect: anxious Skin no rashes or lesions noted MDM MDM MDM Narrative Medical decision making narrative: IV line established and patient given IV fluids. Morphine and Zofran ordered for pain and nausea. Labwork obtained to evaluate for leukocytosis, anemia, and electrolyte derangement. Urinalysis obtained to evaluate for infection/hematuria. EKG obtained to evaluate for cardiac arrhythmia/ischemia. Chest x-ray obtained given patient's chest pain. CT flank obtained given her flank pain to evaluate for possible kidney stone. Venous ultrasound of the right lower extremity obtained to evaluate for possible DVT. History & Record Review Discussion w/independent historian: Patient Lab Data Attestation: I reviewed the patient's lab results. Labs: Laboratory Results - last 24 hr 04/18/23 04/18/23 20:04 20:15 WBC 17.3 H RBC 4.64 Hgb 13.5 Hct 41.8 MCV 90.1 MCH 29.1 MCHC 32.3 RDW Std Deviation 42.8 RDW Coeff of Johana 13.0 Plt Count 375 MPV 8.9 Immature Gran % (Auto) 0.300 Neut % (Auto) 80.1 H Lymph % (Auto) 13.1 L [place] % (Auto) 5.4 Eos % (Auto) 0.6 Baso % (Auto) 0.5 Absolute Neuts (auto) 13.8 H Absolute Lymphs (auto) 2.26 Nucleated RBC % 0 Sodium 140 Potassium 3.8 Chloride 107 Carbon Dioxide 29.0 Anion Gap 4 L BUN 13 Creatinine 0.91 Estim Creat Clear Calc 57.48 Est GFR (MDRD) Af Amer 81 Est GFR (MDRD) Non-Af 67 BUN/Creatinine Ratio 14.2 Glucose 106 Calcium 9.2 Troponin I High Sens 6 Urine Color SEE COMMENT BELOW Urine Clarity Clear Urine pH 5.0 Ur Specific [place] 1.020 Urine Protein 30 H Urine Glucose (UA) Normal Urine Ketones Negative Urine Occult Blood 25 H Urine Nitrite Positive H Urine Bilirubin 6 H Urine Urobilinogen 8 H Ur Leukocyte Esterase 100 H Urine RBC 0 SEEN Urine WBC 25-50 SEEN Ur Squamous Epith Cells 0-5 SEEN Urine Bacteria 0 SEEN Urine Mucus 0 SEEN Radiography Chest X-Ray - ED: 1 View, Read by ED Physician, Normal, Heart, Lungs and Mediastinum Diagnostic Testing: Clinical Impression(s) from Imaging Studies Venous Duplex 04/18/23 19:54 IMPRESSION: Normal venous Doppler ultrasound of the right lower extremity. Electronically Signed: Ly Zhao MD at 21:29 EDT Reading Location ID and State: [id number] [facility] [employer] , Service support , Abdomen/Pelvis CT 04/18/23 20:23 IMPRESSION: Possible cystitis, correlation with urinalysis recommended. Status post hysterectomy. Diverticulosis with no signs of diverticulitis. No bowel obstruction. Unremarkable abdominal viscera. Specifically, normal bilateral kidneys with no intrarenal stone or hydronephrosis. Electronically Signed: Ly Zhao MD at 21:27 EDT Reading Location ID and State: [id number] [facility] [employer] , Service support , Chest X-Ray 04/18/23 20:25 IMPRESSION: No acute cardiopulmonary disease. Electronically Signed: Ly Zhao MD at 21:13 EDT Reading Location ID and State: [id number] [facility] [employer] , Service support , EKG Initial EKG: Attestation: I personally reviewed and interpreted this EKG as follows: Interpretation: Sinus Rhythm (Sinus at 80 with no acute ischemia.) Treatment and Re-Evaluation :: CBC was elevated white count at 17.3 with 80% neutrophils. Hemoglobin is normal at 13.5. Chemistry studies unremarkable with normal renal function. Troponin is normal at 6. Urinalysis does reveal positive nitrites and 25-50 white cells. Urine has been sent for culture. Patient is given a dose of IV Rocephin here. Portable chest x-ray per my interpretation reveals no acute abnormalities. Radiology interpretation reviewed and agrees. CT scan of the flank reveals changes consistent with cystitis. Diverticulosis is noted without evidence of diverticulitis. Venous ultrasound of the right lower extremity reveals no evidence of DVT. On repeat evaluation patient having some GI spasms. She is given a dose of Bentyl. I did review her last urine culture from 2021. She had 2 bugs growing both sensitive to Cipro so I will treat her with Cipro at this time. I did advise her that a urine culture was sent and if an antibiotic change is needed we will call her. She is comfortable with this plan. Discharge Plan Triage Chief Complaint: Complaint ED Provider: Laura Mcallister Dx/Rx/DC Orders Clinical Impression: Cystitis Instructions: ED Cystitis Female Adult Prescriptions: New ciprofloxacin HCl [Cipro] 500 mg tablet 500 mg PO BID Qty: 7 0RF No Action pantoprazole 20 mg tablet,delayed release (DR/EC) 20 mg PO BID Patient Comments: TAKE 1 TABLET BY MOUTH TWICE DAILY. TAKE ON EMPTY STOMACH, 1/2 HR BEFORE MEAL. amlodipine 5 mg tablet 5 mg PO DAILY Patient Comments: TAKE 1 TABLET BY MOUTH TWICE A DAY levocetirizine 5 mg tablet 5 mg PO DAILY PRN (Reason: allergies) Patient Comments: TAKE 1 TABLET BY MOUTH EVERY DAY fluticasone propionate 50 mcg/actuation spray,suspension 1 spray INTRANASAL DAILY Patient Comments: SPRAY 1 SPRAY INTO EACH NOSTRIL EVERY DAY fluoxetine 20 mg capsule 20 mg PO QHS Patient Comments: TAKE 1 CAPSULE BY MOUTH EVERY DAY budesonide-formoterol 160-4.5 mcg/actuation HFA aerosol inhaler 2 puff INHALATION BID Patient Comments: INHALE 2 PUFFS INSTRUCTED TWICE DAILY. *TRANS TO DELLA KERR ET 5 28 20 cyclobenzaprine 10 mg tablet 10 mg PO PRN PRN (Reason: muscle spasms) Patient Comments: TAKE 1 ORAL EVERY NIGNT FOR 28 DAYS albuterol sulfate 90 mcg/actuation Hfa Aerosol Inhaler 1 inh INHALATION Q6H PRN (Reason: sob) hydrocodone-acetaminophen 5-325 mg tablet 1 tab PO TID PRN Patient Comments: TAKE 1 TABLET BY MOUTH THREE TIMES DAILY FOR 7 DAYS Primary Care Provider: Hallie Gonzalez Referrals: Hallie Gonzalez MD [Primary Care Provider] - 1-2 Weeks Disposition Disposition: Home, Self Care
--- NOTE | 2023-04-18 19:54 | US_ITS ---
STUDY: VENOUS DOPPLER ULTRASOUND - RIGHT LOWER EXTREMITY REASON FOR EXAM: Female, 58 years old. RT LEG PAIN TECHNIQUE: Ultrasound evaluation of the deep vein system to include magana-scale imaging and compression was performed. Magana-scale imaging and Doppler sonographic evaluation, including duplex spectral analysis and qualitative color flow sonography, was performed. COMPARISON: None. FINDINGS: Common Femoral Vein: Normal compression, spontaneity and augmentation. Normal color Doppler. Common Femoral Vein/Greater Saphenous Junction: Normal compression, spontaneity and augmentation. Normal color Doppler. Deep Femoral Vein: Normal compression, spontaneity and augmentation. Normal color Doppler. Femoral Proximal: Normal compression, spontaneity and augmentation. Normal color Doppler. Femoral Middle: Normal compression, spontaneity and augmentation. Normal color Doppler. Femoral Distal: Normal compression, spontaneity and augmentation. Normal color Doppler. Popliteal Vein: Normal compression, spontaneity and augmentation. Normal color Doppler. Posterior Tibial Vein: Normal compression, spontaneity and augmentation. Normal color Doppler. Peroneal Vein: Normal compression, spontaneity and augmentation. Normal color Doppler. There is no demonstrated deep venous thrombosis. US/Venous Duplex Imag/Limited/Uni IMPRESSION: Normal venous Doppler ultrasound of the right lower extremity. Electronically Signed: Ly Zhao MD at 21:29 EDT ,
[2023-04-18] MEDS: Morphine 4 MG/ML Syringe IV (20:09)
[2023-04-18] MEDS: Ondansetron 4 MG/2 ML Vial IV (20:09)
[2023-04-18] MEDS: 0.9% Normal Saline (1000mL) 1,000 ML 1000 ML IV (20:09)
[2023-04-18 20:14] LABS: Absolute Lymphocyte Count 2.26 X10^3/uL (0.83-4.51); Absolute Neutrophil Count 13.8 X10^3/uL (2.0-7.7); Basophil# 0.08 X10^3/uL; Basophil% 0.5 % (0-1); Eosinophil# 0.11 X10^3/uL; Eosinophils% 0.6 % (0-5); Hematocrit 41.8 % (37-47); Hemoglobin 13.5 g/dL (12.0-15.0); Lymphocyte # 2.26 X10^3/ul (0.83-4.51); Lymphocyte % 13.1 % (19-41); Mean Corp Hgb Conc 32.3 g/dL (32-36); Mean Corpuscular Hgb 29.1 pg (27.0-32.0); Mean Corpuscular Volume 90.1 fL (81-99); Mean Platelet Vol. 8.9 fl (6.2-12.0); Monocyte# 0.94 X10^3/uL; Monocyte% 5.4 % (0-10); NRBC Flagged by Analyzer 0 % (0-5); Neutrophil # 13.81 X10^3/uL (2.7-7.7); Neutrophil % 80.1 % (47-70); Platelet Count 375 K/mm3 (150-450); RBC Distribution Width SD 42.8 fl (35.1-43.9); Red Blood Count 4.64 M/mm3 (4.2-5.4); White Blood Count 17.3 K/mm3 (4.4-11.0)
[2023-04-18 20:21] LABS: Bacteria 0 SEEN /hpf (None Seen); Mucous, Urine 0 SEEN /hpf (<or=2+); Red Blood Cells-Urine 0 SEEN /hpf (0-5)
--- NOTE | 2023-04-18 20:23 | CT_ITS ---
STUDY: CT ABDOMEN AND PELVIS WITHOUT CONTRAST REASON FOR EXAM: Female, 58 years old. flank pain RADIATION DOSAGE (If Supplied By Facility): CTDIvol = ( 10.85 ) mGy, DLP = ( 585.41 ) mGycm TECHNIQUE: Transaxial images were obtained from the dome of the diaphragm to the symphysis pubis without oral contrast, and without intravenous contrast. Sagittal and coronal images were reconstructed. Individualized dose optimization techniques were used for this CT. COMPARISON: None. FINDINGS: Trace posterior dependent atelectasis, otherwise lung bases are clear. The visualized portions of the heart are within normal limits. Normal liver. Normal gallbladder and extrahepatic biliary system. Normal spleen. Normal pancreas. Normal bilateral adrenal glands. Normal right kidney. Normal left kidney. Normal visualized stomach. Normal small intestine. There are multiple colonic diverticula consistent with diverticulosis. There is non-visualization of the appendix. There is diffuse atherosclerotic calcification of the abdominal aorta, without a demonstrated aneurysm. Normal inferior vena cava. Normal retroperitoneum. Urinary bladder is incompletely distended with thickening of the wall concerning for cystitis. There is absence of the uterus consistent with a prior hysterectomy. Normal abdominal wall. There are diffuse degenerative changes of the visualized lumbar spine. CT/Abdomen/Pelvis without Cont IMPRESSION: Possible cystitis, correlation with urinalysis recommended. Status post hysterectomy. Diverticulosis with no signs of diverticulitis. No bowel obstruction. Unremarkable abdominal viscera. Specifically, normal bilateral kidneys with no intrarenal stone or hydronephrosis. Electronically Signed: Ly Zhao MD at 21:27 EDT ,
--- NOTE | 2023-04-18 20:25 | RAD_ITS ---
STUDY: X-RAY CHEST REASON FOR EXAM: Female, 58 years old. cp TECHNIQUE: Single AP portable view of the chest. COMPARISON: 09/08/2022. FINDINGS: The lungs are clear and expanded. There is no demonstrated pleural abnormality. Normal size heart. Normal mediastinum and afshan. Normal visualized pulmonary arteries. Normal visualized aortic arch and descending thoracic aorta. There are diffuse degenerative changes of the visualized thoracic spine. Normal visualized ribs, clavicles, and shoulders. There is no demonstrated abnormality of the visualized soft tissue structures of the upper abdomen. RAD/Chest 1 View (Portable) IMPRESSION: No acute cardiopulmonary disease. Electronically Signed: Ly Zhao MD at 21:13 EDT ,
[2023-04-18 20:30] LABS: Glucose, Dipstick Normal (Normal); Ketone-Dipstick Negative (Negative); Leukocyte Esterase-Dipstick 100 /ul (Negative); Nitrite-Dipstick Positive (Negative); Occult Blood-Urine 25 /ul (Negative); Protein-Dipstick 30 mg/dl (Negative); Urine Clarity Clear (Clear); Urine Urobilinogen 8 mg/dl (Normal)
[2023-04-18 20:32] LABS: Color, Urine SEE COMMENT BELOW (Yellow); Urine Bilirubin Dipstick 6 mg/dL (Negative)
[2023-04-18 20:44] LABS: Anion Gap 4 (5-15); BUN 13 mg/dL (7-18); BUN/Creat Ratio 14.2 RATIO (10-20); Calcium,Total 9.2 mg/dL (8.5-10.1); Chloride 107 mmol/L (98-107); Creatinine, Serum 0.91 mg/dL (0.55-1.02); EST Glomerular Filtration Rate 67 mL/min (>60); Est Glom Filt Rate - Afr Amer 81 mL/min (>60); Estimated Creatinine Clearance 57.48 ml/min; Glucose 106 mg/dL (74-106); Potassium 3.8 mmol/L (3.5-5.1); Sodium Level 140 mmol/L (136-145); Troponin-I HS 6 pg/mL (3.0-54.0)
[2023-04-18 20:48] LABS: Squamous Epithelial Cells - UA 0-5 SEEN /hpf (5-10); White Blood Cells 25-50 SEEN /hpf (0-5)
[2023-04-18] MEDS: Ceftriaxone 1 GM/50 ML BAG IV (21:09)
[2023-04-18] MEDS: Dicyclomine 10 MG Capsule 20 MG PO (22:10)
[2023-04-18 22:15] VITALS: PULSE 85; RESP 18; O2SAT 99
== END 2023-04-18 22:15 | disposition home or self-care (01) ==
PROVIDERS: Emergency Provider Emergency Medicine; PCP Internal Medicine; Visit Provider Emergency Medicine
DX: N30.90 Cystitis, unspecified without hematuria (principal); F17.210 Nicotine dependence, cigarettes, uncomplicated
CPT/HCPCS: 71045; 74176; 80048; 81001; 84484; 85025; 87077; 87086; 87088; 87186; 93005; 93971; 96365; 96375; 99283; J2405

== ENCOUNTER 2023-09-19 19:17 | Emergency (ER) | payer BC, SELFPAY ==
[2023-09-19 19:17] VITALS: BP 145/76; PULSE 77; RESP 16; TEMP 36.1; O2SAT 96
--- NOTE | 2023-09-19 19:46 | ED.RN ---
Patient states she is now able to bear weight so she is going to wait and see Basali tomorrow.
--- NOTE | 2023-09-19 19:47 | ED.RN ---
Patient later tried to walk again and was in too much pain. Decided to be seen.
--- NOTE | 2023-09-19 21:15 | RAD_ITS ---
EXAM: XR RIGHT HIP WITH PELVIS WHEN PERFORMED, 2 OR 3 VIEWS CLINICAL INDICATION: pain TECHNIQUE: Two or three views of the right hip with pelvis when performed. COMPARISON: No relevant prior studies available. FINDINGS: BONES/JOINTS: Degenerative changes in the spine, hips, and SI joints. No displaced fracture. No destructive or sclerotic lesions. Note that overlapping bowel shadows may however obscure fine detail. No widening of the pubic symphysis. SOFT TISSUES: [place] in the soft tissues adjacent to the greater trochanters likely related to insertional tendinopathy and trochanteric enthesopathy. No soft tissue swelling or gas. RAD/HIP, UNI W/ Pelvis 2-3 Views IMPRESSION: 1. [place] in the soft tissues adjacent to the greater trochanters likely related to insertional tendinopathy and trochanteric enthesopathy. No evidence of acute fracture or dislocation. 2. Degenerative changes in the spine, hips, and SI joints. Electronically Signed: Catalino Rizvi DO at 21:44 EDT ,
--- NOTE | 2023-09-19 22:46 | EDS_ITS ---
HPI History of Present Illness Chief Complaint: Lower Extremity Injury Informant: patient and family Narrative Narrative: Patient has chronic back pain and is following with Dr. Bates with spine surgery and Dr. Tomi Dahl orthopedics, last facet steroid injection she had was in June she is due again maybe in a couple weeks at the earliest, she was also following with pain management but they stopped giving her prescriptions and treatment. She works a factory job, she is on her feet all day, she is been working a lot of hours recently, she has had gradual worsening pain specially over the last 3 days, and in need of relief. She states prednisone or meth ylprednisone has helped her in the past and it has been a long time since she has been on it at least several months. She is due for surgery for this problem due to disc problems in December and cannot get it sooner. She denies any new symptoms such as neurologic weakness, numbness, saddle anesthesia, or new bowel or bladder dysfunction. She has a history of some incontinence that is no different, but it is not random. [facility] Medical History Abrasion of both knees Alcohol use Ambulates with cane Anemia Anxiety Arthritis Back pain Cancer Cardiology follow-up encounter Chest pain Contusion, knee COPD (chronic obstructive pulmonary disease) Difficulty swallowing Gastric reflux History of pain when walking History of renal disease History of stress test History of ulceration HTN (hypertension) Hx Gallbladder Removal hx of exploritory surgery Injury of head and neck Multiple sclerosis MVP (mitral valve prolapse) Restless legs Smoker Strain of left wrist URI (upper respiratory infection) Wears glasses Wears partial dentures Home Medications amlodipine 5 mg tablet 5 mg PO DAILY 09/03/20 [History Last Taken 11/11/20 08:00] budesonide-formoterol HFA 160 mcg-4.5 mcg/actuation aerosol inhaler 2 puff inhal ation BID 09/03/20 [History Last Taken Unknown] cyclobenzaprine 10 mg tablet 10 mg PO PRN PRN muscle spasms 09/03/20 [History Last Taken Unknown] fluoxetine 20 mg capsule 20 mg PO QHS 09/03/20 [History Last Taken 11/11/20 08:00] fluticasone propionate 50 mcg/actuation nasal spray,suspension 1 spray intranasal DAILY 09/03/20 [History Last Taken Unknown] levocetirizine 5 mg tablet 5 mg PO DAILY PRN allergies 09/03/20 [History Last Taken Unknown] pantoprazole 20 mg tablet,delayed release 20 mg PO BID 09/03/20 [History Last Taken 11/11/20 08:00] albuterol sulfate 90 mcg/actuation aerosol inhaler 1 inh inhalation Q6H PRN sob 11/06/20 [History Last Taken Unknown] ciprofloxacin HCl 500 mg tablet (Cipro) 500 mg PO BID #7 tabs 04/18/23 [Rx Last Taken Unknown] hydrocodone-acetaminophen 5-325mg 5mg-325mg 1 tab PO TID PRN pain 04/18/23 [History Last Taken Unknown] oxycodone-acetaminophen 5 mg-325 mg tablet 1 tab PO Q6H PRN PRN Pain 3 days #12 TABLETS 09/19/23 [Rx Last Taken Unknown] prednisone 20 mg tablet 40 mg (2 x 20 mg) PO DAILY #10 TABLETS 09/19/23 [Rx Last Taken Unknown] Allergy/AdvReac Type Severity Reaction Status Date / Time etodolac AdvReac Severe shaking. Verified 09/19/23 19:17 Family History Mother Cancer Heart disease Uterine cancer Father Heart disease Brother Heart disease Surgical History History of carpal tunnel surgery of left wrist History of esophagogastroduodenoscopy (EGD) History of rectal surgery Hx of bladder repair surgery Hx of cardiac cath Hx of hernia repair Hx of hysterectomy Hx of nasal septoplasty Hx of repair of right rotator cuff Hx of tonsillectomy Social History Smoking Status: Current every day smoker tobacco type: cigarettes Tobacco: How many years used: 40 alcohol intake: never ROS ROS ED Constitutional Constitutional ED: Denies chills or fever(s) Gastrointestinal Gastrointestinal: Denies abdominal pain, constipation, fecal incontinence, nausea or vomiting Genitourinary Genitourinary ED: Reports as per HPI, urinary incontinence and other Details: no urinary retention, no acute changes in bowel or bladder function ; Denies abdominal discomfort Musculoskeletal Musculoskeletal: Reports as per HPI and back pain; Denies neck pain Integumentary Denies rash or wounds Neurologic Neurologic: Reports paresthesias LLE (Occasionally, not new); Denies headache(s) or weakness EXAM Physical Exam Const Vital Signs: 09/19/23 19:17 Temperature 97 F L Temperature Source Temporal Pulse Rate 77 Respiratory Rate 16 Blood Pressure 145/76 H Blood Pressure Mean 99 Pulse Ox 96 Positive well nourished and well developed Constitutional Narrative: Uncomfortable lying left lateral decubitus and pain General Appearance ED: well developed and NAD HEENT Negative for trauma or tenderness Eyes PERRL and EOMs intact bilaterally Neck full ROM and supple Resp normal respiratory effort GI normal to inspection, nondistended, normoactive bowel sounds, soft to palpation and non-tender Back/Spine normal to inspection Back/Spine Narrative: Hyporeflexive right lower extremity compared with the left. No clonus. Toes downgoing. Lumbar Spine / Lower Back: ROM limited, paraspinal muscle tenderness and straight leg raise negative bilaterally; Negative for lumbar spinal tenderness Extremity normal to inspection, full ROM and no pedal edema Neuro oriented x3 and no sensory deficits noted Sensorium / Orientation: alert Motor Exam: strength 5/5 throughout and clonus absent Deep Tendon Reflexes: Rt Patellar (L4): 2+, Lt Patellar (L4): 2+, Rt Ankle (S1): 2+ and Lt Ankle (S1): 2+ Deep Tendon Reflexes Back: Rt Patellar (L4): 2+, Lt Patellar (L4): 2+, Rt Ankle (S1): 2+ and Lt Ankle (S1): 2+ Plantar Reflex: Downgoing: bilateral Psych mental status grossly normal and thought process normal Skin no rashes or lesions noted and no wounds MDM MDM MDM Narrative Medical decision making narrative: Although patient has asymmetric reflexes I do not think she has acute cauda equina syndrome or conus medullaris syndrome. Straight leg raises are negative, including cross straight leg raise, do not reproduce any radicular symptoms but she has some sciatic notch tenderness and tenderness in her low back right paraspinal musculature. Will treat her pain, and have her follow-up. She is given a prescription as well. I think is also reasonable to put her on 5 days of prednisone to see if that helps, therefore nothing long-acting so that she can still get her steroid facet injection in 2 weeks if she desires and is able. History & Record Review Additional record(s) reviewed:: Prior outpatient record (MRI lumbar spine 2019 multilevel DDD) Radiography Diagnostic Testing: Clinical Impression(s) from Imaging Studies Hip/Pelvis X-Ray 09/19/23 21:15 IMPRESSION: 1. Ossicles in the soft tissues adjacent to the greater trochanters likely related to insertional tendinopathy and trochanteric enthesopathy. No evidence of acute fracture or dislocation. 2. Degenerative changes in the spine, hips, and SI joints. Electronically Signed: Catalino Rizvi DO at 21:44 EDT , Discharge Plan Triage Chief Complaint: Lower Extremity Injury ED Provider: Raudel Amanda Dx/Rx/DC Orders Clinical Impression: Acute exacerbation of chronic low back pain, DDD (degenerative disc disease), lumbar Instructions: ED Back Pain (Acute or Chronic) Prescriptions: New oxycodone-acetaminophen [oxycodone-acetaminophen] 5-325 mg tablet 1 tab PO Q6H PRN PRN (Reason: Pain) 3 Days Qty: 12 0RF prednisone 20 mg tablet 40 mg PO DAILY Qty: 10 0RF No Action pantoprazole 20 mg tablet,delayed release (DR/EC) 20 mg PO BID Patient Comments: TAKE 1 TABLET BY MOUTH TWICE DAILY. TAKE ON EMPTY STOMACH, 1/2 HR BEFORE MEAL. amlodipine 5 mg tablet 5 mg PO DAILY Patient Comments: TAKE 1 TABLET BY MOUTH TWICE A DAY levocetirizine 5 mg tablet 5 mg PO DAILY PRN (Reason: allergies) Patient Comments: TAKE 1 TABLET BY MOUTH EVERY DAY fluticasone propionate 50 mcg/actuation spray,suspension 1 spray INTRANASAL DAILY Patient Comments: SPRAY 1 SPRAY INTO EACH NOSTRIL EVERY DAY fluoxetine 20 mg capsule 20 mg PO QHS Patient Comments: TAKE 1 CAPSULE BY MOUTH EVERY DAY budesonide-formoterol 160-4.5 mcg/actuation HFA aerosol inhaler 2 puff INHALATION BID Patient Comments: INHALE 2 PUFFS INSTRUCTED TWICE DAILY. *TRANS TO DELLA RODRÍGUEZ 5 28 20 cyclobenzaprine 10 mg tablet 10 mg PO PRN PRN (Reason: muscle spasms) Patient Comments: TAKE 1 ORAL EVERY NIGNT FOR 28 DAYS albuterol sulfate 90 mcg/actuation Hfa Aerosol Inhaler 1 inh INHALATION Q6H PRN (Reason: sob) hydrocodone-acetaminophen 5-325 mg tablet 1 tab PO TID PRN Patient Comments: TAKE 1 TABLET BY MOUTH THREE TIMES DAILY FOR 7 DAYS ciprofloxacin HCl [Cipro] 500 mg tablet 500 mg PO BID Qty: 7 0RF Stand Alone Forms: ED Work / School Excuse Primary Care Provider: Care Physician,No Primary Referrals: Hallie Gonzalez MD [Med Staff - Director Of Respiratory Therapy] - Rolf Bates DO [Med Staff - Active Staff] - As soon as possible (And/or your primary doctor for pain control if previously directed there) Disposition Disposition: Home, Self Care
[2023-09-19] MEDS: HYDROmorphone 1 MG/ML Syringe IM (22:53)
[2023-09-19] MEDS: Ondansetron ODT 4 MG Tablet 8 MG PO (22:53)
[2023-09-19] MEDS: predniSONE 20 MG Tablet 40 MG PO (22:53)
[2023-09-19 23:17] VITALS: BP 140/68; PULSE 67; RESP 16; TEMP 36.9; O2SAT 99
== END 2023-09-19 23:20 | disposition home or self-care (01) ==
PROVIDERS: Emergency Provider Emergency Medicine; Visit Provider Emergency Medicine
DX: M51.36 Other intervertebral disc degeneration, lumbar region (principal); J44.9 Chronic obstructive pulmonary disease, unspecified; F17.210 Nicotine dependence, cigarettes, uncomplicated; G89.29 Other chronic pain
CPT/HCPCS: 73502; 96372; 99283

== ENCOUNTER 2024-02-06 08:00 | Outpatient (CLI) | payer BC, SELFPAY ==
--- NOTE | 2024-02-06 11:32 | EKG12_ITS ---
Test Reason : PRE OP Blood Pressure : / mmHG Vent. Rate : 070 BPM Atrial Rate : 070 BPM P-R Int : 144 ms QRS Dur : 086 ms QT Int : 396 ms P-R-T Axes : 064 -20 048 degrees QTc Int : 427 ms Normal sinus rhythm Septal infarct , age undetermined Abnormal ECG Confirmed by FALGUNI RAMIREZ, SHANDA ([id number]), image editor POLO BARTHOLOMEW ([id number]) on 02/10/2024 7:28:58 AM Referred By: Rolf Bates Confirmed By:NEHEMIAH MONTES DE OCA MD
--- NOTE | 2024-02-06 11:40 | RAD_ITS ---
STUDY: X-RAY CHEST REASON FOR EXAM: Female, 58 years old. PREOP TECHNIQUE: PA and lateral views of the chest. COMPARISON: 04/18/2023 FINDINGS: The lungs are clear and expanded. There is no demonstrated pleural abnormality. Normal size heart. Normal mediastinum and afshan. Normal visualized pulmonary arteries. Normal visualized aortic arch and descending thoracic aorta. Normal visualized thoracic spine. Normal visualized ribs, clavicles, and shoulders. There is no demonstrated abnormality of the visualized soft tissue structures of the upper abdomen. RAD/Chest PA and Lateral IMPRESSION: Normal x-ray examination of the chest. Electronically Signed: Gautam Maynard MD at 8:37 EDT ,
[2024-02-06 12:32] LABS: Absolute Lymphocyte Count 1.64 X10^3/uL (0.83-4.51); Absolute Neutrophil Count 4.6 X10^3/uL (2.0-7.7); Basophil# 0.06 X10^3/uL; Basophil% 0.9 % (0-1); Eosinophil# 0.16 X10^3/uL; Eosinophils% 2.3 % (0-5); Hemoglobin 12.1 g/dL (12.0-15.0); Lymphocyte # 1.64 X10^3/ul (0.83-4.51); Lymphocyte % 23.8 % (19-41); Mean Corpuscular Hgb 28.2 pg (27.0-32.0); Mean Corpuscular Volume 90.9 fL (81-99); Mean Platelet Vol. 9.2 fl (6.2-12.0); Monocyte# 0.44 X10^3/uL; Monocyte% 6.4 % (0-10); NRBC Flagged by Analyzer 0 % (0-5); Neutrophil # 4.56 X10^3/uL (2.7-7.7); Neutrophil % 66.3 % (47-70); Platelet Count 409 K/mm3 (150-450); RBC Distribution Width CV 13.2 % (11.6-14.6); RBC Distribution Width SD 43.4 fl (35.1-43.9); Red Blood Count 4.29 M/mm3 (4.2-5.4); White Blood Count 6.9 K/mm3 (4.4-11.0)
[2024-02-06 12:43] LABS: Prothrombin Time (Protime)PT. 13.4 SECONDS (11.7-14.9)
[2024-02-06 12:48] LABS: Magnesium 2.3 mg/dL (1.6-2.6)
[2024-02-06 12:52] LABS: Anion Gap 4 (5-15); BUN 11 mg/dL (7-18); BUN/Creat Ratio 15.6 RATIO (10-20); Calcium,Total 9.2 mg/dL (8.5-10.1); Chloride 106 mmol/L (98-107); EST Glomerular Filtration Rate 90 mL/min (>60); Est Glom Filt Rate - Afr Amer 109 mL/min (>60); Glucose 99 mg/dL (74-106); Potassium 4.2 mmol/L (3.5-5.1); Sodium Level 139 mmol/L (136-145)
== END 2024-02-06 23:00 | disposition home or self-care (01) ==
LOC: SDC 08-22 21:29
PROVIDERS: Anesthesiology; PCP Internal Medicine; Referring Provider Orthopaedic Surgery; Visit Provider Orthopaedic Surgery
DX: Z01.818 Encounter for other preprocedural examination (principal)
CPT/HCPCS: 36415; 71046; 80048; 83735; 85025; 85610; 85730; 87081; 93005

== ENCOUNTER 2024-04-24 11:23 | Day surgery (SDC) | payer BC, SELFPAY ==
[2024-04-24] MEDS: Lidocaine Jelly 2% 20 ML Syringe (URO-JET) 1 APPLIC (11:46)
[2024-04-24 11:50] VITALS: BP 133/46; PULSE 72; RESP 16; TEMP 36.4; O2SAT 99
== END 2024-04-24 12:42 | disposition home or self-care (01) ==
PROVIDERS: PCP Internal Medicine; Referring Provider Internal Medicine; Visit Provider Internal Medicine Gastroenterology
PROC: F00ZJWZ Instrumental Swallowing and Oral Function Assessment using Swallowing Equipment (ICD-10-PCS; CPT 43235; principal; 2024-04-24 11:25)
DX: R13.14 Dysphagia, pharyngoesophageal phase (principal); R07.9 Chest pain, unspecified
CPT/HCPCS: 91010

== ENCOUNTER 2024-05-08 10:52 | Day surgery (SDC) | payer BC, SELFPAY ==
[2024-05-08] VITALS (8 sets, daily range): BP systolic 108–140; BP diastolic 56–81; PULSE 14–76; RESP 14–16; TEMP 36.1–36.3; O2SAT 95–100; BMI 31.0
--- NOTE | 2024-05-08 11:53 | PCM.PRE.AN2 ---
ASA Classification* ASA Classification ASA Classification: 3 Assessment & Plan Anesthesia* Anesthesia Assessment Anesthesia Assessment: Discussed sedation and/or anesthesia options, risks, benefits, and alternatives with patient/parents/legal guardian/POA. Questions invited. The patient/parents/legal guardian/POA seems to understand and agrees to proceed with anesthesia plan. Reviewed the physical assessment, medical history, allergy history and patient home medications list prior to surgery/procedure/anesthetic and documented any changes. Performed airway and anesthesia risk assessments. Anesthesia Type Anesthesia Type: MAC History Source History Obtained from:: Patient and Chart Anesthesia Focused Assessment* Temperature: 97 F Pulse Rate: 76 Blood Pressure: 140/69 Respiratory Rate: 16 Pulse Ox: 96 Oxygen Delivery Method: Room Air Airway Assessment Mouth opens: >3 cm Mallampati Score: II Teeth Condition: Missing (Patient is missing some molars. Rest are tight.) Neck Range of motion (ROM): Full ROM Focused Labs Anesthesia Preop lab: CBC WBC 6.9 K/mm3 (4.4-11.0) 02/06/24 11:10 RBC 4.29 M/mm3 (4.2-5.4) 02/06/24 11:10 Hgb 12.1 g/dL (12.0-15.0) 02/06/24 11:10 Hct 39.0 % (37-47) 02/06/24 11:10 Plt Count 409 K/mm3 (150-450) 02/06/24 11:10 CHEMISTRY Potassium 4.2 mmol/L (3.5-5.1) 02/06/24 11:10 Sodium 139 mmol/L (136-145) 02/06/24 11:10 Magnesium 2.3 mg/dL (1.6-2.6) 02/06/24 11:10 BUN 11 mg/dL (7-18) 02/06/24 11:10 Creatinine 0.70 mg/dL (0.55-1.02) 02/06/24 11:10 Glucose 99 mg/dL (74-106) 02/06/24 11:10 COAG PT 13.4 SECONDS (11.7-14.9) 02/06/24 11:10 Pre-Assessment Diagnosis/Proposed Procedure Planned Operative Procedure(s): Esophagogastroduodenoscopy Anesthesia History Anesthesia History - air export coordinator: Anesthesia History - air export coordinator Hx Hospitalization No 03/22/24 10:48 Any Problems With Anesthesia Yes: N,V 03/22/24 10:48 Cholinesterase deficiency No 03/22/24 10:48 You/Your Family Experience No 03/22/24 10:48 fever (hyperthermia) with Relationship Recent Exposure to Contagious No 05/08/24 11:23 Disease Does patient have nerve No 03/22/24 10:48 stimulator Patient instructed to have device shut off --Does patient have Pacemaker No 05/08/24 11:23 or ICD? When Was Last Pacemaker Check QUESTION #4 FULL TEXT: You/Your Family Experience fever (hyperthermia) with Anesthesia Last Oral Intake Last Oral intake: Last Oral Intake NPO since 23:59 05/08/24 11:23 Meds taken in AM with sips of No 05/08/24 11:23 water? Meds patient instructed to take am of surgery PONV PONV - air export coordinator: PONV - air export coordinator Female HX of Motion Sickness HX of N/V After Surgery Non-Smoker Duration of Surgery greater than 60 minutes Number of Risk Factors PONV Score Height & Weight Height & Weight: Anesthesia: Height & Weight Height 5 ft 4 in 05/08/24 11:23 Weight: 82 kg 05/08/24 11:23 Body Mass Index (BMI) 31.0 05/08/24 11:23 Respiratory Assessment Respiratory Assessment - air export coordinator: Respiratory Tract Infection Hx - air export coordinator Hx Respiratory Tract Infection No 04/24/24 11:54 STOP Sleep Apnea STOP Sleep Apnea - air export coordinator: STOP Sleep Apnea - air export coordinator Hx Hypertension Yes 04/24/24 11:54 Hx Sleep Apnea No 03/22/24 10:48 CPAP No 03/22/24 10:48 BIPAP Do you snore loudly (louder than talking or can be heard Do you often feel tired/ fatigued/ sleepy during daytime? Has anyone observed you stop breathing during sleep? STOP Results QUESTION #5 FULL TEXT : Do you snore loudly (louder than talking or can be heard through closed doors)? Tobacco Use History Tobacco Use History - air export coordinator: Tobacco Use History - air export coordinator Tobacco Use Cigarettes 03/22/24 10:48 Smoking Status Current every day smoker 03/22/24 10:48 Hx Tobacco Use Yes 03/22/24 10:48 Years Smoking Packs Smoked per Day Smoking Cessation Date was within the last 15 years Hx Smoking Cessation Date Hx Smoking Cessation No 03/22/24 10:48 Counseling Any additional information?: Yes Smoking Status: Current every day smoker (Patient had 1 cigarette today) Hematologic Medial History Hematologic Hx - air export coordinator: Hematologic Medical Hx - documentation clerk Hx of Blood Transfusion Hx of Transfusion in last 3 Months Date of Last Transfusion (if within last 3 months) Ever experience any problems with transfusion(s)? Specify any problems Hx of Preganancy in last 3 Months Nurse Filling Out Transfusion & Questions: Date: Time: Patient unable to answer at this time (ie. confused, unrespo /Reproduction History /Reproductive History - air export coordinator: /Reproductive Hx- air export coordinator Hx Now Gestational Age (in weeks): EDC: Hx Hx Para Hx Section SAB No 03/22/24 10:48 [facility] Medical History Choking episode Depression History of steroid therapy Acute kidney failure Syncope History of diverticulitis History of echocardiogram History of heart attack URI (upper respiratory infection) Contusion, knee Abrasion of both knees Strain of left wrist Wears glasses Cancer Anxiety Alcohol use Ambulates with cane Arthritis Anemia Back pain Injury of head and neck Multiple sclerosis Difficulty swallowing History of ulceration Gastric reflux Smoker COPD (chronic obstructive pulmonary disease) History of pain when walking MVP (mitral valve prolapse) History of stress test Cardiology follow-up encounter Chest pain hx of exploritory surgery Hx Gallbladder Removal HTN (hypertension) Home Medications ?Medication ?Instructions ?Recorded ?Last Taken ?Type fluticasone propionate 50 1 spray intranasal DAILY 09/03/20 05/07/24 History mcg/actuation nasal spray,suspension duloxetine 30 mg capsule,delayed 30 mg PO 1400 02/06/24 05/07/24 History release losartan 25 mg tablet 25 mg PO DAILY 02/06/24 05/07/24 History biotin 1 mg capsule 1 mg PO QDAY 04/13/24 05/07/24 History calcium 260 mg (phos,tribasic)-D3 tab PO DAILY 04/13/24 05/07/24 History 25 mcg-herbal 50 mg chewable tablet (Alive Calcium-Vitamin D3) methocarbamol 500 mg tablet 500 mg PO BID 04/13/24 05/05/24 History pantoprazole 40 mg tablet,delayed 40 mg PO BID 04/13/24 05/07/24 History release thiamine HCl (vitamin B1) 50 mg 50 mg PO QDAY 04/13/24 05/07/24 History tablet magnesium 200 mg tablet 400 mg PO DAILY 05/08/24 Unknown History Allergy/AdvReac Type Severity Reaction Status Date / Time etodolac AdvReac Severe shaking. Verified 05/08/24 11:18 Family History Mother Cancer Uterine cancer Father Heart disease Brother Heart disease Surgical History Hx of tonsillectomy Hx of nasal septoplasty History of esophagogastroduodenoscopy (EGD) History of carpal tunnel surgery of left wrist Hx of repair of right rotator cuff History of rectal surgery Hx of hysterectomy Hx of bladder repair surgery Hx of hernia repair Hx of cardiac cath Social History current occupational status: employed Smoking Status: Current every day smoker tobacco type: cigarettes Tobacco: How many years used: 40 alcohol intake: never do you feel safe at home: Yes Review of Systems (Anesthesia) ROS Narrative System reviewed and no additional complaints, except as documented.
--- NOTE | 2024-05-08 12:00 | EGD_PTH ---
PATIENT: KASI BALDERAS LOC: EN U#:[id number] AGE/SX: 59/F ROOM: RE05/08/[address]: Dr. Christos Guerrero DO : 1965 BED: DIS: 05/08/2024 SPEC #: [id number] RECD: 05/08/24 17:34 STATUS: HAIR DENILSON #: [id number] CHAVEZ: 05/08/24 12:[address]: Christos Guerrero DEPT: SURGICAL PATHOLOGY RECD BY: Jordon Rendon ENTERED: 05/09/24 09:29 SP TYPE: EGD BIOPSY SEBASTIAN DR: Dr. Hallie Gonzalez MD Tissues: Esophagus, NOS Procedures: Special Stain Group I Surgery Specimen Level IV Alcian Blue/PAS (control) HEADER OPERATION: EGD with biopsy and dilation PRE-OP DIAGNOSIS: Encounter for preoperative examination for general surgical procedure TISSUE SUBMITTED: Distal esophagus biopsy MICROSCOPIC DIAGNOSIS Distal esophagus, biopsy: Fragments of gastroesophageal mucosa with focal ulceration, acute and chronic inflammation. Intestinal metaplasia (goblet cell metaplasia) not identified. See comment. 05/10/2024 COMMENT Alcian blue/PAS stain with matched control is used in the evaluation of the specimen. MICROSCOPIC DESCRIPTION Slides are reviewed. GROSS DESCRIPTION Received in fixative is one container labeled with the patient's name and designated Distal esophagus biopsy. The specimen consists of multiple irregular fragments of light downs soft tissue that in aggregate measure 0.8 x 0.8 x 0.1 cm. The specimen is totally submitted in one cassette. 05/09/2024 TC:3 CPT:87485,42127
--- NOTE | 2024-05-08 12:27 | HP.PCM_ITS ---
History and Physical Date of Admission: 05/23/24 KASI BALDERAS, is a 58 F who presents to the office today for establishment with BGI and preoperative clearance for a L3-5 fixation, she thinks. PCP, Dr. Ileana Gonzalez, expresses concerns that she chokes almost every time that she eats and wants to make sure that does not become an issue during anesthesia. Pt distraught over having to get several preop clearances so close to surgery date of 03/01/24 as she has met most of her deductibles, arranged for all of the time off, and has family to help at home. States that she's had multiple major surgeries without difficulties since having dysphagia. She reports choking at every meal at least once and that this has been happening for years; observes and adjusts food consistencies to pudding/soup texture and does much better. States that she avoids bread, baked potatoes, rice, and trinidadian fries. Reports that she's had her throat stretched once 4 to 5 years ago with her last EGD; reports that she was told she has a pocket in her esophagus that catches the food she eats. Reports that when food is stuck, she begins coughing and can then cause herself to vomit the food out; once cleared, she proceeds with smaller and wetter bites of food. She reports random coughing attacks which lead to her vomiting. She reports having been on lisinopril for her high blood pressure and thought the medicine was causing a persistent cough, discussed with a pharmacist and took herself off of it; then started on losartan. Reports that coughing spells have reduced significantly, but still happen about once a week. Denies difficulty chewing, heartburn, acid reflux, constipation and diarrhea. Denies abdominal pain, pressure, bloating and cramping. Reports daily BM to every other day with complete evacuation. Denies blood in stool and emesis. Denies shortness of breath. She reports that sometimes she can eat too much during one meal and then will involuntarily have an emesis; states this happens about once or twice a week. She also states that seeing a person cough/ spit up phlegm or tobacco will make her have an involuntary emesis as well. She does report history of tobacco use, about 1 pack/week. ROS Const Constitutional: Positive for headache(s) and sleep problems; No chills, fever(s), decreased energy or change in appetite Eyes Eyes: No change in vision or visual disturbances ENT ENT: Positive for headache(s) and difficulty swallowing; No abnormal hearing Resp Respiratory: Positive for cough Gastro GI: Positive for difficulty swallowing, feeling full early and vomiting; No abdominal pain, belching, bloating, change in bowel habits, change in stool character, coffee ground emesis, constipation, cramping, diarrhea, heartburn, excessive flatus, incontinent of stools, Vomiting blood/hematemesis, Blood in stool, loose stools, Black,tarry stools, nausea/dyspepsia or pain with swallowing Genitourinary-Female: No difficulty urinating Musc Musculoskeletal: Positive for abnormal gait, joint pain, back pain, myalgias, numbness, stiffness, tingling and leg pain at night Skin Skin: No yellowing of the eye or itchy eyes Neuro Neurology: Positive for abnormal gait, headache(s), numbness and tingling; No abnormal hearing, dizziness or visual disturbances Psych Psychiatric: Positive for anxiety, No change in appetite, Positive for depression and No Thoughts of harming yourself/Others Endo Endocrine: No cold intolerance, heat intolerance, increased thirst/drinking, increased hunger or increased urine leakage Aller/Imm Allergy/Immunologic: No food intolerance or itchy eyes Aries/Lymp Hematologic/Lymphatic: No easy bleeding or easy bruising Exam Const General: cooperative Nutritional Appearance: obese Orientation: alert and awake HENMD Head: normal to inspection Ears: hearing grossly normal bilaterally Nose: external nose normal Face and sinus: normal facial exam and face symmetric Eyes General: appearance normal, both eyes and all related structures Neck Neck: normal visual inspection and full ROM Neck mass: No Chest Chest palpation & inspection: normal inspection of the chest Resp Effort & Inspection: normal respiratory effort, able to speak in complete sentences and symmetric chest movement GI Inspection: normal to inspection and obesity Auscultation: normal bowel sounds Palpation: soft and no hepatosplenomegaly Skin General: no rashes or lesions noted Neuro General: patient alert, patient awake, patient oriented x3 and moves all extremities Cognition: normal cognition Speech: speech normal Gait: normal gait Extrem General: normal to inspection and full ROM Psych Appearance: well kempt Mental Status: mental status grossly normal Mood: anxious mood Affect: normal affect Speech and Movement: speech and movement normal Attitude: cooperative Thought Process: normal Judgment: judgment good Assessment and Plan Assessment and Plan (1) Encounter for preoperative examination for general surgical procedure: Plan: KASI BALDERAS, is a 58 F who presents to the office today for establishment with BGI and preoperative surgical clearance. Pt presents with multiple long-standing complaints and has a history of prior esophageal dilatation. Choking on food has been happening for several years now. Current presentations warrant investigation for differential diagnoses including: eosinophilic esophagitis, esophageal dysmotility, gastroparesis. Pt states that she only wants surgical clearance right now, will come back later to figure those things out. * She is low risk for gastrointestinal complications during this high risk procedure. * Recommend administering metoclopramide 10mg and ondansetron 4mg IV immediately preoperatively I have examined the patient and the H&P has been reviewed. There are no clinical changes since date of exam.
--- NOTE | 2024-05-08 12:48 | OP.CCLET_ITS ---
05/08/2024 Hallie Gonzalez [address] [place] [address] Re : Upper GI endoscopy procedure for Cristin Mathis Dear Dr. Gonzalez This procedure was performed on Wednesday, May 08, 2024. My impressions and recommendations are as follows: Impressions : - LA Grade C erosive esophagitis with no bleeding. Biopsied. - Moderate Schatzki ring. Dilated. - No gross lesions in the first portion of the duodenum. Recommendations : - Discharge patient to home. - Resume previous diet. - Continue present medications. - Await pathology results. My findings are described in the full procedure note, which is enclosed. If I can be of further assistance, please feel free to contact me at . Sincerely, Christos Friend, 05/08/2024 12:47:49 PM This report has been signed electronically.
--- NOTE | 2024-05-08 12:48 | OP.EGD_ITS ---
Patient Name: Cristin Mathis Procedure Date: 05/08/2024 8:39 AM Date of : 1965 Age: 59 Procedure: Upper GI endoscopy Indications: Dysphagia Providers: Christos Guerrero DO Referring MD: Christos Guerrero DO Medicines: Monitored Anesthesia Care Patient Profile: This is a 59 year old female. Refer to note in patient chart for documentation of history and physical. Patient has symptoms of chronic chest pain and chronic dysphagia. Complications: No immediate complications. Procedure: Pre-Anesthesia Assessment: - Prior to the procedure, a History and Physical was performed, and patient medications and allergies were reviewed. The patient is competent. The risks and benefits of the procedure and the sedation options and risks were discussed with the patient. All questions were answered and informed consent was obtained. Patient identification and proposed procedure were verified by the physician in the pre-procedure area. Mental Status Examination: alert and oriented. Airway Examination: normal oropharyngeal airway and neck mobility. Respiratory Examination: clear to auscultation. CV Examination: normal. ASA Grade Assessment: II - A patient with mild systemic disease. After reviewing the risks and benefits, the patient was deemed in satisfactory condition to undergo the procedure. The anesthesia plan was to use monitored anesthesia care (MAC). Immediately prior to administration of medications, the patient was re-assessed for adequacy to receive sedatives. The heart rate, respiratory rate, oxygen saturations, blood pressure, adequacy of pulmonary ventilation, and response to care were monitored throughout the procedure. The physical status of the patient was re-assessed after the procedure. After obtaining informed consent, the endoscope was passed under direct vision. Throughout the procedure, the patient's blood pressure, pulse, and oxygen saturations were monitored continuously. The gastroscope was introduced through the mouth, and advanced to the second part of duodenum. The upper GI endoscopy was accomplished without difficulty. The patient tolerated the procedure well. Scope In: 12:36:05 PM Scope Out: 12:41:45 PM Total Procedure Duration Time 0 hours 5 minutes 40 seconds Findings: LA Grade C (one or more mucosal breaks continuous between tops of 2 or more mucosal folds, less than 75% circumference) esophagitis with no bleeding was found 36 to 40 cm from the incisors. Biopsies were taken with a cold forceps for histology. Verification of patient identification for the specimen was done. Estimated blood loss was minimal. A moderate Schatzki ring was found at the gastroesophageal junction. A guidewire was placed and the scope was withdrawn. Dilation was performed with a Savary dilator with no resistance at 57 Fr. The dilation site was examined and showed moderate improvement in luminal narrowing. Estimated blood loss was minimal. No other significant abnormalities were identified in a careful examination of the stomach. No gross lesions were noted in the first portion of the duodenum. Impression: - LA Grade C erosive esophagitis with no bleeding. Biopsied. - Moderate Schatzki ring. Dilated. - No gross lesions in the first portion of the duodenum. Recommendation: - Discharge patient to home. - Resume previous diet. - Continue present medications. - Await pathology results. Procedure Code(s): --- Professional --- 10420, Esophagogastroduodenoscopy, flexible, transoral; with insertion of guide wire followed by passage of dilator(s) through esophagus over guide wire 13600, 59,51, Esophagogastroduodenoscopy, flexible, transoral; with biopsy, single or multiple CPT copyright 2021 [employer]. All rights reserved. The codes documented in this report are preliminary and upon printed circuit board pcb draftsman review may be revised to meet current compliance requirements. Christos Guerrero DO 05/08/2024 12:47:49 PM This report has been signed electronically. Number of Addenda: 0 Note Initiated On: 05/08/2024 8:39 AM
--- NOTE | 2024-05-08 12:50 | PCM.POST.ANE ---
Anesthesia: Postop Eval I Current Vital Signs Temperature: 97 F Pulse Rate: 14 Blood Pressure: 125/58 Respiratory Rate: 14 Pulse Ox: 97 Oxygen Delivery Method: Room Air Assessment Airway patent: Yes Spontaneous unlabored respirations: Yes Mental status: Awake and Calm nausea: No Vomiting: No Anesthesia Complication: No Fluid Hydration Crystalloid volume administer (ml): 30 Total IV fluid infused: 30 Progress Note Anesthesia document: Postop Eval 1 completed: Yes
--- NOTE | 2024-05-08 16:02 | PCM.POSTANE2 ---
Anesthesia Postop Eval I Sum Postop Eval Completion status Anesthesia document: Postop Eval 1 completed: Yes Anesthesia Postop Eval I Summary Anesthesia Postop Eval I Summary: Anesthesia Postop Eval I: Assessment Summary Airway patent Yes 05/08/24 12:51 [email or web address] Spontaneous unlabored Yes 05/08/24 12:51 [email or web address] respirations Mental status Awake,Calm 05/08/24 12:51 [email or web address] nausea No 05/08/24 12:51 [email or web address] Vomiting No 05/08/24 12:51 [email or web address] Anesthesia Postop Eval I: Fluid Summary Crystalloid volume administer 30 05/08/24 12:51 [email or web address] (ml) Colloids volume administered ( ml) Blood Product volume administered (ml) Total IV fluid infused 30 05/08/24 12:51 [email or web address] Anesthesia Postop Eval I: Summary Notes Anesthesia Complication No 05/08/24 12:51 [email or web address] Anesthesia Complication Comment: Post-operative progress note Anesthesia: Postop Eval II Evaluation Mental status: Awake and Calm Pain Level: 0 nausea: No Vomiting: No Complications Anesthesia Complication: No
== END 2024-05-08 13:45 | disposition home or self-care (01) ==
LOC: EN 10:56 → AC 10:57
PROVIDERS: PCP Internal Medicine; Referring Provider Internal Medicine; Visit Provider Internal Medicine Gastroenterology
PROC: 0DJ08ZZ Inspection of Upper Intestinal Tract, Via Natural or Artificial Opening Endoscopic (ICD-10-PCS; CPT 43235; principal; 2024-05-08 11:55)
DX: K22.2 Esophageal obstruction (principal); K21.00 Gastro-esophageal reflux disease with esophagitis, without bleeding; R13.10 Dysphagia, unspecified; E66.9 Obesity, unspecified; F17.210 Nicotine dependence, cigarettes, uncomplicated; Z79.899 Other long term (current) drug therapy; Z68.31 Body mass index [BMI] 31.0-31.9, adult
CPT/HCPCS: 43239; 43248; 88305; 88312; A4216; C1769; J2405